=== PATIENT | female | born 1950 | race Caucasian/White ===

== ENCOUNTER 2017-04-27 17:10 | Observation (INO) | payer OTHER ==
[~2017-04-27] VITALS: Ht 167.6 cm; Wt 123.3 kg
[2017-04-27] MEDS ORDERED: SODIUM CHLORIDE 0.9% 1000ML 1,000 ML IV STA (17:31)
--- NOTE | 2017-04-27 17:35 | EMERGENCY ROOM VISIT NOTE ---
History Report prepared by Dustin: Angel Rider Under the Supervision of: Dr. Kristi Red D.O. First contact with patient: 17:17 Chief Complaint: FLU LIKE SX Stated Complaint: SICK ALL OVER History of Present Illness The patient is a 66 year old female who presents to the Emergency Room with complaints of a constant generalized ache sensation that began today. She states that she felt fine when she woke up this morning, but started to feel generalized achiness, which she describes as "sickness all over", throughout the day today. The patient admits that she has been hallucinating and "seeing things that she usually does not". She states she hears and sees things that are not true such as her "granddaughter needs medicine that she does not want to take for her chest because she had an x-ray done, even though this is not true". She also reports that she has been experiencing nausea, chills, and a headache. The patient reports that she has been also experiencing abdominal pain , which she states is worse than her other general ache pains. She states that she has experienced this every month for a while, but she admits that she has never experienced her symptoms this severe in the past. The patient states that she has experienced these symptoms three times this week. She states that she took Tylenol today, but denies any relief of symptoms. The patient is accompanied by her daughter who states that the patient has been more fatigued and sleeping more lately. The patient admits that she has a history of chronic diarrhea and a family history of brain tumors. She denies any changes in bowel movement, vomiting, urinary symptoms, dizziness, sore throat, cough, SOB, chest pains, rhinorrhea, rashes, changing of medication dosage, being around someone sick, recent travel, thyroid problems. Source of History: patient, family (daughter) Onset: today Position: other (global) Quality: ache Timing: constant Modifying Factors (Relieving): tylenol Associated Symptoms: + chills, + headache, + nausea, + abdominal pain, + diarrhea, + fatigue, No sorethroat, No cough, No chest pain, No SOB, No vomiting , No urinary symptoms, No rash Review of Systems See HPI for pertinent positives & negatives. A total of 10 systems reviewed and were otherwise negative. Past Medical & Surgical Medical Problems: (1) Diarrhea Family History FHx: brain tumor Social History Smoking Status: Never Smoker Occupation Status: retired Current/Historical Medications Scheduled Acetaminophen (Tylenol), 1,000 MG PO HS Hydrochlorothiazide (Hctz), 25 MG PO DAILY Paroxetine HCl (Paroxetine), 20 MG PO DAILY Allergies Coded Allergies: No Known Allergies (Unverified , 04/27/17) Physical Exam Vital Signs Date Time Temp Pulse Resp B/P (MAP) Pulse Ox O2 Delivery O2 Flow Rate FiO2 04/27/17 20:33 81 18 146/74 97 Room Air 04/27/17 18:55 82 20 166/70 96 Room Air 04/27/17 17:13 36.7 79 18 157/82 92 Room Air Physical Exam GENERAL: alert, well appearing, well nourished, no distress, non-toxic EYE EXAM: normal conjunctiva, PERRL and EOM's grossly intact OROPHARYNX: no exudate, no erythema, lips, buccal mucosa, and tongue normal and mucous membranes are moist NECK: supple, no nuchal rigidity, no adenopathy, non-tender LUNGS: Clear to auscultation. Normal chest wall mechanics HEART: no murmurs, S1 normal and S2 normal ABDOMEN: abdomen soft, non-tender, normo-active bowel sounds, no masses, no rebound or guarding. BACK: Back is symmetrical on inspection and there is no deformity, no midline tenderness, no CVA tenderness. SKIN: no rashes and no bruising UPPER EXTREMITIES: upper extremities are grossly normal. LOWER EXTREMITIES: No pitting edema. NEURO EXAM: Seems slightly confused. Normal sensorium, cranial nerves II-XII grossly intact, normal speech, no gross weakness of arms, no gross weakness of legs. No drift. Gross sensation intact. Medical Decision & Procedures ER Provider Diagnostic Interpretation: Radiology results have been interpreted by the radiologist and reviewed by me. HEAD CT NONCONTRAST CT DOSE: 638.56 mGycm HISTORY: confusion, hallucinations TECHNIQUE: Multiaxial CT images of the head were performed without the use of intravenous contrast. Automated exposure control was utilized for this study. A dose lowering technique was utilized adhering to the principles of ALARA. Comparison: None. Findings: The paranasal sinuses and mastoid air cells are clear. The calvarium and skull base are intact. The ventricles and sulci are within normal limits. There is no mass, hematoma, midline shift, or acute infarct. Impression: No acute intracranial abnormality. Electronically signed by: Bhavin Medrano M.D. 04/27/2017 6:23 PM Dictated Date/Time: 04/27/2017 6:19 PM CHEST ONE VIEW PORTABLE CLINICAL HISTORY: Flu-like symptoms COMPARISON STUDY: No previous studies for comparison. FINDINGS: Lung volumes are at the lower limits of normal. There is no consolidation to suggest pneumonia. There is no evidence of pulmonary edema. Mild cardiomegaly is noted. No pneumothorax or pleural effusion is present. IMPRESSION: No acute cardiopulmonary findings. Electronically signed by: Shelton Amin M.D. 04/27/2017 6:08 PM Dictated Date/Time: 04/27/2017 6:07 PM A[address]OMEN AND PELVIS CT WITH IV CONTRAST CT DOSE: 1737.84 mGy.cm HISTORY: Generalized abdominal pain, nausea TECHNIQUE: Multiaxial CT images of the abdomen and pelvis were performed following the use of intravenous contrast. A dose lowering technique was utilized adhering to the principles of ALARA. COMPARISON STUDY: None. FINDINGS: A 3 mm subpleural nodule within the right lower lobe on image 85. A 6 mm hypodense lesion within the left hepatic lobe. This is too small to characterize but favors a cyst. Cholecystectomy. The pancreas, spleen, adrenal glands are unremarkable. A few subcentimeter hypodense lesions within the kidneys are too small to characterize but favor cysts. Small left peripelvic renal cysts. No retroperitoneal lymphadenopathy. 3.2 cm right fundal partially calcified uterine fibroid. The bladder is unremarkable. No bowel wall thickening or obstruction. Normal appendix. Hypodense focus at the cervix favors a nabothian cyst. IMPRESSION: 1. No bowel wall thickening or obstruction. 2. Normal appendix. 3. No hydronephrosis. 4. Cholecystectomy. 5. A 3 mm indeterminate pulmonary nodule within the right lower lobe. Electronically signed by: Bhavin Medrano M.D. 04/27/2017 7:49 PM Dictated Date/Time: 04/27/2017 7:28 PM Laboratory Results 04/27/17 17:58 Red Blood Count 5.00, Mean Corpuscular Volume 86.6, Mean Corpuscular Hemoglobin 29.6, Mean Corpuscular Hemoglobin Concent 34.2, Mean Platelet Volume 11.4, Neutrophils (%) (Auto) 86.9, Lymphocytes (%) (Auto) 9.7, Monocytes (%) (Auto) 2.6, Eosinophils (%) (Auto) 0.2, Basophils (%) (Auto) 0.2, Neutrophils # (Auto) 8.09, Lymphocytes # (Auto) 0.90, Monocytes # (Auto) 0.24, Eosinophils # (Auto) 0.02, Basophils # (Auto) 0.02 04/27/17 17:58 Test 04/27/17 17:44 04/27/17 17:58 Urine Color YELLOW Urine Appearance CLEAR (CLEAR) Urine pH 5.5 (4.5-7.5) Urine Specific [place] 1.024 (1.000-1.030) Urine Protein NEG (NEG) Urine Glucose (UA) NEG (NEG) Urine Ketones TRACE (NEG) Urine Occult Blood 3+ (NEG) Urine Nitrite NEG (NEG) Urine Bilirubin NEG (NEG) Urine Urobilinogen NEG (NEG) Urine Leukocyte Esterase NEG (NEG) Urine WBC (Auto) 1-5 /hpf (0-5) Urine RBC (Auto) 10-30 /hpf (0-4) Urine Hyaline Casts (Auto) 0 /lpf (0-5) Urine Epithelial Cells (Auto) 10-20 /lpf (0-5) Urine Bacteria (Auto) NEG (NEG) Influenza Type A Antigen Neg for Influ A (NEG) Influenza Type B Antigen Neg for Influ B (NEG) White Blood Count 9.31 K/uL (4.8-10.8) Red Blood Count 5.00 M/uL (4.2-5.4) Hemoglobin 14.8 g/dL (12.0-16.0) Hematocrit 43.3 % (37-47) Mean Corpuscular Volume 86.6 fL (80-100) Mean Corpuscular Hemoglobin 29.6 pg (25-34) Mean Corpuscular Hemoglobin Concent 34.2 g/dl (32-36) Platelet Count 174 K/uL (130-400) Mean Platelet Volume 11.4 fL (7.4-10.4) Neutrophils (%) (Auto) 86.9 % Lymphocytes (%) (Auto) 9.7 % Monocytes (%) (Auto) 2.6 % Eosinophils (%) (Auto) 0.2 % Basophils (%) (Auto) 0.2 % Neutrophils # (Auto) 8.09 K/uL (1.4-6.5) Lymphocytes # (Auto) 0.90 K/uL (1.2-3.4) Monocytes # (Auto) 0.24 K/uL (0.11-0.59) Eosinophils # (Auto) 0.02 K/uL (0-0.5) Basophils # (Auto) 0.02 K/uL (0-0.2) RDW Standard Deviation 40.9 fL (36.4-46.3) RDW Coefficient of Variation 12.8 % (11.5-14.5) Immature Granulocyte % (Auto) 0.4 % Immature Granulocyte # (Auto) 0.04 K/uL (0.00-0.02) Anion Gap 6.0 mmol/L (3-11) Est Creatinine Clear Calc Drug Dose 137.3 ml/min Estimated GFR () 114.0 Estimated GFR (Non- 98.3 BUN/Creatinine Ratio 29.8 (10-20) Lactic Acid Level 1.1 mmol/L (0.4-2.0) Calcium Level 8.9 mg/dl (8.5-10.1) Total Bilirubin 0.9 mg/dl (0.2-1) Aspartate Amino Transf (AST/SGOT) 11 U/L (15-37) Alanine Aminotransferase (ALT/SGPT) 20 U/L (12-78) Alkaline Phosphatase 68 U/L (45-117) Ammonia 23.0 umol/L (11-32) Troponin I < 0.015 ng/ml (0-0.045) Total Protein 7.1 gm/dl (6.4-8.2) Albumin 3.6 gm/dl (3.4-5.0) Globulin 3.5 gm/dl (2.5-4.0) Albumin/Globulin Ratio 1.0 (0.9-2) Lipase 95 U/L (73-393) Thyroid Stimulating Hormone (TSH) 1.460 uIu/ml (0.300-4.500) Acetaminophen Level < 2 ug/ml (10-30) Ethyl Alcohol mg/dL < 3.0 mg/dl (0-3) Lyme Disease IgG Antibody NEG (NEG) Lyme Disease IgM Antibody NEG (NEG) Monoscreen NEG (NEG) Laboratory results per my review. Medications Administered Medications (Trade) Dose Ordered Sig/Nasrin Route Start Time Stop Time Status Last Admin Dose Admin Sodium Chloride 1,000 ml @ 200 mls/hr Q5H STAT IV 04/27/17 17:31 04/27/17 22:30 DC 04/27/17 18:03 200 MLS/HR Ondansetron HCl (Zofran 8mg Iv) 8 mg NOW STAT IV 04/27/17 18:58 04/27/17 18:59 DC 04/27/17 19:10 8 MG Acetaminophen 100 ml @ 400 mls/hr NOW STAT IV 04/27/17 20:42 04/27/17 20:56 DC 04/27/17 20:55 400 MLS/HR Pantoprazole Sodium 40 mg/ Syringe 10 ml @ 5 mls/min NOW ONCE IV 04/27/17 20:45 04/27/17 20:46 DC 04/27/17 21:10 5 MLS/MIN ECG Indication: other (lightheaded) Rate (beats per minute): 80 Rhythm: normal sinus Findings: no acute ischemic change, no ectopy, other (Normal axis and intervals ) ED Course 1716: The patient was evaluated in room B02. A complete history and physical exam was performed. 1730: Ordered Sodium Chloride 1000 ml @ 200 mls/hr IV. 1857: Ordered Ondansetron HCl 8 mg IV. 2035: I reevaluated the patient and she is complaining of a headache and abdominal pain. I will order medication for her. 2041: Ordered Acetaminophen 100 ml @ 400 mls/hr IV. 2044: Ordered Pantoprazole Sodium 40 mg/ Syringe 10 ml @ 5 mls/min. 2114: I discussed the patients case with Dr. Berman, [facility] Hospitalist. He understands the patients condition and agrees to accept the patient. The patient will be further evaluated. Medical Decision The differential diagnosis includes but is not limited to etiologies such as metabolic, infection, hypo/hyperglycemia, electrolyte abnormalities, cardiac sources, intracerebral event, toxicologic, neurologic, as well as others were entertained. Pt with unclear etiology of symptoms, possibly viral, however concern due to change in mental status and intermittent possible hallucinations. Doubt bacteremia/sepsis. No worsening george, fevers, neck pain, did not feel pt warranted LP, low suspicion for meningitis/encephalitis. Unclear etiology of hematuria, no symptoms, no sx to suggest stone and none seen on CT. Unclear etiology of abd pain. Pt admitted for additional evaluation/treatment. Medication Reconcilliation Current Medication List: was personally reviewed by me Blood Pressure Screening Patient's blood pressure: Elevated blood pressure Blood pressure disposition: Elevated BP felt to be situational Consults Time Called: 2111 Consulting Physician: Mitchell Juaers Hospitalist Returned Call: 2114 I discussed the patients case with Mitchell Juares Hospitalist. He understands the patients condition and agrees to accept the patient. The patient will be further evaluated. Impression Primary Impression: Abdominal pain Additional Impressions: Head ache Myalgia Generalized weakness Hematuria Scribe Attestation The scribe's documentation has been prepared under my direction and personally reviewed by me in its entirety. I confirm that the note above accurately reflects all work, treatment, procedures, and medical decision making performed by me. Departure Information Dispostion Being Evaluated By Hospitalist (Dr. Berman) Referrals No Doctor, Assigned (PCP) Patient Instructions My [facility] Problem Qualifiers Primary Impression: Abdominal pain Abdominal location: generalized Qualified Codes: R10.84 - Generalized abdominal pain Additional Impressions: Head ache Headache type: unspecified Headache chronicity pattern: unspecified pattern Intractability: not intractable Qualified Codes: R51 - Headache Hematuria Hematuria type: unspecified type Qualified Codes: R31.9 - Hematuria, unspecified
[2017-04-27 17:59] LABS: URINE APPEARANCE CLEAR (CLEAR); URINE BILIRUBIN NEG (NEG); URINE COLOR YELLOW; URINE NITRITE NEG (NEG); URINE PH 5.5 (4.5-7.5); URINE SPECIFIC GRAVITY 1.024 (1.000-1.030); UROBILINOGEN NEG (NEG); ZZUR CULT IF INDIC CLEAN CATCH NO
[2017-04-27 18:07] LABS: MANUAL MICROSCOPIC REQUIRED? NO; REVIEW REQ? NO
--- NOTE | 2017-04-27 18:09 | DIAGNOSTIC IMAGING REPORT ---
CHEST ONE VIEW PORTABLE CLINICAL HISTORY: Flu-like symptoms COMPARISON STUDY: No previous studies for comparison. FINDINGS: Lung volumes are at the lower limits of normal. There is no consolidation to suggest pneumonia. There is no evidence of pulmonary edema. Mild cardiomegaly is noted. No pneumothorax or pleural effusion is present. IMPRESSION: No acute cardiopulmonary findings. Electronically signed by: Shelton Amin M.D. 04/27/2017 6:08 PM Dictated Date/Time: 04/27/2017 6:07 PM
[2017-04-27 18:12] LABS: BASO % 0.2 %; BASO ABS # 0.02 K/uL (0-0.2); COMPLETE YES; EOS % 0.2 %; HEMATOCRIT 43.3 % (37-47); IG% 0.4 %; LYMPH % 9.7 %; MEAN CELL VOLUME 86.6 fL (80-100); MEAN CORPUSCULAR HEMOGLOBIN 29.6 pg (25-34); MEAN CORPUSCULAR HGB CONC 34.2 g/dl (32-36); MEAN PLATELET VOLUME 11.4 fL (7.4-10.4); MONO % 2.6 %; NEUT % 86.9 %; PLATELET COUNT 174 K/uL (130-400); WHITE BLOOD COUNT 9.31 K/uL (4.8-10.8)
--- NOTE | 2017-04-27 18:24 | DIAGNOSTIC IMAGING REPORT ---
HEAD CT NONCONTRAST CT DOSE: 638.56 mGycm HISTORY: confusion, hallucinations TECHNIQUE: Multiaxial CT images of the head were performed without the use of intravenous contrast. Automated exposure control was utilized for this study. A dose lowering technique was utilized adhering to the principles of ALARA. Comparison: None. Findings: The paranasal sinuses and mastoid air cells are clear. The calvarium and skull base are intact. The ventricles and sulci are within normal limits. There is no mass, hematoma, midline shift, or acute infarct. Impression: No acute intracranial abnormality. Electronically signed by: Bhavin Medrano M.D. 04/27/2017 6:23 PM Dictated Date/Time: 04/27/2017 6:19 PM
[2017-04-27 18:37] LABS: ALT/SGPT 20 U/L (12-78); AST/SGOT 11 U/L (15-37); BLOOD UREA NITROGEN 16 mg/dl (7-18); BUN/CREATININE RATIO 29.8 (10-20); CALCIUM 8.9 mg/dl (8.5-10.1); CARBON DIOXIDE 29 mmol/L (21-32); CHLORIDE 103 mmol/L (98-107); CREATININE 0.54 mg/dl (0.60-1.20); GLUCOSE 122 mg/dl (70-99); POTASSIUM 3.5 mmol/L (3.5-5.1); SODIUM 138 mmol/L (136-145)
[2017-04-27] MEDS ORDERED: HYDR25TA4 PO (18:46)
[2017-04-27] MEDS ORDERED: TYLOTC500 PO (18:46)
[2017-04-27] MEDS ORDERED: PARO20TA3 PO (18:46)
[2017-04-27 18:48] LABS: ALKALINE PHOSPHATASE 68 U/L (45-117)
[2017-04-27] MEDS ORDERED: ONDANSETRON 8 MG/54 ML D5W IV STA (18:58)
[2017-04-27 19:01] LABS: LYME DISEASE AB IGG NEG (NEG); LYME DISEASE AB IGM NEG (NEG)
[2017-04-27] MEDS ORDERED: OPTIRAY 320 IV PRN (19:15)
--- NOTE | 2017-04-27 19:51 | DIAGNOSTIC IMAGING REPORT ---
ABDOMEN AND PELVIS CT WITH IV CONTRAST CT DOSE: 1737.84 mGy.cm HISTORY: Generalized abdominal pain, nausea TECHNIQUE: Multiaxial CT images of the abdomen and pelvis were performed following the use of intravenous contrast. A dose lowering technique was utilized adhering to the principles of ALARA. COMPARISON STUDY: None. FINDINGS: A 3 mm subpleural nodule within the right lower lobe on image 85. A 6 mm hypodense lesion within the left hepatic lobe. This is too small to characterize but favors a cyst. Cholecystectomy. The pancreas, spleen, adrenal glands are unremarkable. A few subcentimeter hypodense lesions within the kidneys are too small to characterize but favor cysts. Small left peripelvic renal cysts. No retroperitoneal lymphadenopathy. 3.2 cm right fundal partially calcified uterine fibroid. The bladder is unremarkable. No bowel wall thickening or obstruction. Normal appendix. Hypodense focus at the cervix favors a nabothian cyst. IMPRESSION: 1. No bowel wall thickening or obstruction. 2. Normal appendix. 3. No hydronephrosis. 4. Cholecystectomy. 5. A 3 mm indeterminate pulmonary nodule within the right lower lobe. Electronically signed by: Bhavin Medrano M.D. 04/27/2017 7:49 PM Dictated Date/Time: 04/27/2017 7:28 PM
[2017-04-27] MEDS ORDERED: ACETAMINOPHEN IV 100 ML IV STA (20:42)
[2017-04-27] MEDS ORDERED: PANTOprazole INJ 40 MG in SYRINGE 0 ML IV ONE (20:45)
[2017-04-27 21:43] VITALS: O2SAT 98
[2017-04-27 22:07] VITALS: BP 126/73; PULSE 74; TEMP 36.7; O2SAT 97
[2017-04-27 22:23] VITALS: BP 126/73; PULSE 74; TEMP 36.7; Ht 167.6 cm; Wt 123.3 kg
[2017-04-27] MEDS ORDERED: ONDANSETRON INJ 2 MG/ML 2 ML VIAL IV PRN (23:00)
[2017-04-27] MEDS ORDERED: IV FLUIDS COMPLETED PRN (23:45)
[2017-04-27] MEDS: NSS + 20MEQ KCL 1000ML 1,000 ML IV SCH (23:58)
[2017-04-27] MEDS: ACETAMINOPHEN 325 MG TAB PO PRN (23:58)
[2017-04-28 05:42] LABS: BASO % 0.6 %; BASO ABS # 0.04 K/uL (0-0.2); COMPLETE YES; EOS % 0.3 %; IG% 0.3 %; LYMPH % 25.9 %; LYMPH ABS # 1.67 K/uL (1.2-3.4); MEAN CELL VOLUME 87.1 fL (80-100); MEAN CORPUSCULAR HEMOGLOBIN 29.2 pg (25-34); MEAN CORPUSCULAR HGB CONC 33.6 g/dl (32-36); MEAN PLATELET VOLUME 10.8 fL (7.4-10.4); MONO % 8.1 %; NEUT % 64.8 %; PLATELET COUNT 190 K/uL (130-400); RED BLOOD COUNT 4.48 M/uL (4.2-5.4); WHITE BLOOD COUNT 6.45 K/uL (4.8-10.8)
[2017-04-28 06:10] LABS: BUN/CREATININE RATIO 25.7 (10-20); CALCIUM 8.3 mg/dl (8.5-10.1); CREATININE 0.52 mg/dl (0.60-1.20); POTASSIUM 3.3 mmol/L (3.5-5.1)
[2017-04-28 07:20] VITALS: BP 107/61; PULSE 75; TEMP 37.1; O2SAT 98
[2017-04-28] MEDS ORDERED: PNEUMOCOCCAL POLYSACCHARIDES 25 MCG/0.5 ML VIAL/SYR IM. ONE (08:00)
[2017-04-28] MEDS ORDERED: PAROXETINE 20 MG TAB PO SCH (08:00)
[2017-04-28] MEDS ORDERED: PNEUMOCOCCAL ADMINISTRATION CHARGE ONE (08:00)
--- NOTE | 2017-04-28 08:16 | History and Physical ---
History & Physical Date & Time of Service: Apr 28, 2017 at 08:04 Chief Complaint: Generalized Weakness Primary Care Physician: Trang Vega D.O. History of Present Illness Source: patient, clinic records 66 year old female with history of hypertension and anxiety presenting with headaches, generalized weakness and abdominal pain. Patient was apparently at her baseline state of health until a few days ago. She reports intermittent abdominal pain, vague discomfort, not related to food intake. Denies nausea, changes with BM/melena/hematochezia. Patient also reports daily headaches for the past few days, frontal, throbbing associated with feeling of "strange sensation" all over her body, followed by generalized weakness. Denies photophobia, visual changes, focal neuro deficits. Per ER notes, patient's daughter reports that she has been having episodes of hallucinations as well (please refer to ER notes). Denies fever/chills, chest pain, dyspnea. No other symptoms. CT head negative no leukocytosis flu, lyme screen negative Family History FHx: brain tumor Social History Smoking Status: Never Smoker Smokeless Tobacco Use: No Alcohol Use: none Drug Use: none Marital Status: Housing status: lives with family Occupational Status: retired Multi-Drug Resistant Organisms History of MDRO: No Allergies Coded Allergies: No Known Allergies (Unverified , 04/27/17) Home Medications Scheduled Acetaminophen (Tylenol), 1,000 MG PO HS Hydrochlorothiazide (Hctz), 25 MG PO DAILY Paroxetine HCl (Paroxetine), 20 MG PO DAILY Review of Systems Constitutional- no fever; no weight loss Eyes- no acute visual changes ENT- no sinus drainage; no pharyngitis Pulmonary- no cough, no wheezing, no shortness of breath Cardiac- no chest pain, no palpitations, no orthopnea, no dependent edema GI- (+) as noted above - no dysuria, no hematuria Musculoskeletal- no arthralgias, no myalgias Derm- no rashes, no new skin lesions, no changing skin lesions Hematologic- no unusual bruising, no unusual bleeding Lymphatics- no adenopathy Endocrine- no polyuria or polydipsia; no heat or cold intolerance Neuro-(+) as noted above Psych- no anxiety, no depression Physical Exam Vital Signs Date Time Temp Pulse Resp B/P (MAP) Pulse Ox O2 Delivery O2 Flow Rate FiO2 04/28/17 07:20 37.1 75 18 107/61 (76) 98 Room Air 04/28/17 00:00 Room Air 04/27/17 22:23 36.7 74 18 126/73 Room Air 04/27/17 22:07 36.7 74 18 126/73 (90) 97 Room Air 04/27/17 21:43 86 18 145/69 98 Room Air 04/27/17 20:33 81 18 146/74 97 Room Air 04/27/17 18:55 82 20 166/70 96 Room Air 04/27/17 17:13 36.7 79 18 157/82 92 Room Air General Appearance: WD/WN, no apparent distress Head: normocephalic, atraumatic Eyes: normal inspection, EOMI, sclerae normal ENT: normal ENT inspection, hearing grossly normal, pharynx normal Neck: supple, no adenopathy, thyroid normal, no JVD, trachea midline Respiratory/Chest: chest non-tender, lungs clear, normal breath sounds, no respiratory distress, no accessory muscle use Cardiovascular: regular rate, rhythm, no edema, no JVD, no murmur Abdomen/GI: normal bowel sounds, non tender, soft, no organomegaly Back: normal inspection, no CVA tenderness Extremities/Musculoskelatal: normal inspection, no calf tenderness, no pedal edema, non-tender Neurologic/Psych: computing architect II-XII nml as tested, no motor/sensory deficits, alert, normal mood/affect, oriented x 3 Skin: normal color, warm/dry, no rash Lymphatic: no adenopathy Diagnostics Laboratory Results Results Past 24 Hours Test 04/27/17 17:44 04/27/17 17:58 04/28/17 05:30 Range/Units Urine Color YELLOW Urine Appearance CLEAR CLEAR Urine pH 5.5 4.5-7.5 Urine Specific [place] 1.024 1.000-1.030 Urine Protein NEG NEG Urine Glucose (UA) NEG NEG Urine Ketones TRACE NEG Urine Occult Blood 3+ NEG Urine Nitrite NEG NEG Urine Bilirubin NEG NEG Urine Urobilinogen NEG NEG Urine Leukocyte Esterase NEG NEG Urine WBC (Auto) 1-5 0-5 /hpf Urine RBC (Auto) 10-30 0-4 /hpf Urine Hyaline Casts (Auto) 0 0-5 /lpf Urine Epithelial Cells (Auto) 10-20 0-5 /lpf Urine Bacteria (Auto) NEG NEG Influenza Type A Antigen Neg for Influ A NEG Influenza Type B Antigen Neg for Influ B NEG White Blood Count 9.31 6.45 4.8-10.8 K/uL Red Blood Count 5.00 4.48 4.2-5.4 M/uL Hemoglobin 14.8 13.1 12.0-16.0 g/dL Hematocrit 43.3 39.0 37-47 % Mean Corpuscular Volume 86.6 87.1 80-100 fL Mean Corpuscular Hemoglobin 29.6 29.2 25-34 pg Mean Corpuscular Hemoglobin Concent 34.2 33.6 32-36 g/dl Platelet Count 174 190 130-400 K/uL Mean Platelet Volume 11.4 10.8 7.4-10.4 fL Neutrophils (%) (Auto) 86.9 64.8 % Lymphocytes (%) (Auto) 9.7 25.9 % Monocytes (%) (Auto) 2.6 8.1 % Eosinophils (%) (Auto) 0.2 0.3 % Basophils (%) (Auto) 0.2 0.6 % Neutrophils # (Auto) 8.09 4.18 1.4-6.5 K/uL Lymphocytes # (Auto) 0.90 1.67 1.2-3.4 K/uL Monocytes # (Auto) 0.24 0.52 0.11-0.59 K/uL Eosinophils # (Auto) 0.02 0.02 0-0.5 K/uL Basophils # (Auto) 0.02 0.04 0-0.2 K/uL RDW Standard Deviation 40.9 40.6 36.4-46.3 fL RDW Coefficient of Variation 12.8 12.6 11.5-14.5 % Immature Granulocyte % (Auto) 0.4 0.3 % Immature Granulocyte # (Auto) 0.04 0.02 0.00-0.02 K/uL Sodium Level 138 140 136-145 mmol/L Potassium Level 3.5 3.3 3.5-5.1 mmol/L Chloride Level 103 105 98-107 mmol/L Carbon Dioxide Level 29 29 21-32 mmol/L Anion Gap 6.0 6.0 3-11 mmol/L Blood Urea Nitrogen 16 13 7-18 mg/dl Creatinine 0.54 0.52 0.60-1.20 mg/dl Est Creatinine Clear Calc Drug Dose 137.3 142.6 ml/min Estimated GFR () 114.0 115.4 Estimated GFR (Non- 98.3 99.6 BUN/Creatinine Ratio 29.8 25.7 10-20 Random Glucose 122 102 70-99 mg/dl Lactic Acid Level 1.1 0.4-2.0 mmol/L Calcium Level 8.9 8.3 8.5-10.1 mg/dl Total Bilirubin 0.9 0.2-1 mg/dl Aspartate Amino Transf (AST/SGOT) 11 15-37 U/L Alanine Aminotransferase (ALT/SGPT) 20 12-78 U/L Alkaline Phosphatase 68 45-117 U/L Ammonia 23.0 11-32 umol/L Troponin I < 0.015 0-0.045 ng/ml Total Protein 7.1 6.4-8.2 gm/dl Albumin 3.6 3.4-5.0 gm/dl Globulin 3.5 2.5-4.0 gm/dl Albumin/Globulin Ratio 1.0 0.9-2 Lipase 95 73-393 U/L Thyroid Stimulating Hormone (TSH) 1.460 0.300-4.500 uIu/ml Acetaminophen Level < 2 10-30 ug/ml Ethyl Alcohol mg/dL < 3.0 0-3 mg/dl Lyme Disease IgG Antibody NEG NEG Lyme Disease IgM Antibody NEG NEG Monoscreen NEG NEG Microbiology Results 04/27/17 Blood Culture, Received Pending 04/27/17 Blood Culture, Received Pending 04/28/17 Urine Culture, Received Pending Diagnostic Radiology ABDOMEN AND PELVIS CT WITH IV CONTRAST CT DOSE: 1737.84 mGy.cm HISTORY: Generalized abdominal pain, nausea TECHNIQUE: Multiaxial CT images of the abdomen and pelvis were performed following the use of intravenous contrast. A dose lowering technique was utilized adhering to the principles of ALARA. COMPARISON STUDY: None. FINDINGS: A 3 mm subpleural nodule within the right lower lobe on image 85. A 6 mm hypodense lesion within the left hepatic lobe. This is too small to characterize but favors a cyst. Cholecystectomy. The pancreas, spleen, adrenal glands are unremarkable. A few subcentimeter hypodense lesions within the kidneys are too small to characterize but favor cysts. Small left peripelvic renal cysts. No retroperitoneal lymphadenopathy. 3.2 cm right fundal partially calcified uterine fibroid. The bladder is unremarkable. No bowel wall thickening or obstruction. Normal appendix. Hypodense focus at the cervix favors a nabothian cyst. IMPRESSION: 1. No bowel wall thickening or obstruction. 2. Normal appendix. 3. No hydronephrosis. 4. Cholecystectomy. 5. A 3 mm indeterminate pulmonary nodule within the right lower lobe. HEAD CT NONCONTRAST CT DOSE: 638.56 mGycm HISTORY: confusion, hallucinations TECHNIQUE: Multiaxial CT images of the head were performed without the use of intravenous contrast. Automated exposure control was utilized for this study. A dose lowering technique was utilized adhering to the principles of ALARA. Comparison: None. Findings: The paranasal sinuses and mastoid air cells are clear. The calvarium and skull base are intact. The ventricles and sulci are within normal limits. There is no mass, hematoma, midline shift, or acute infarct. Impression: No acute intracranial abnormality. EKG HR 80 sinus rhythm Impression Assessment and Plan 66 year old female with history of hypertension and anxiety presenting with headaches, generalized weakness and abdominal pain. HEADACHES, WEAKNESS - associated with hallucinations - CT head negative - afebrile, no leukocytosis - possible migraine with aura? - will consult Neurology EPIGASTRIC PAIN - CT abdomen unrevealing - trial of Protonix HTN - usually on HCTZ PULMONARY NODULE - monitor as outpatient SCDs for DVT prophylaxis FULL CODE per patient DISPOSITION lives with daughter at home PT/OT evals ordered Advanced Directives Existing Living Will: No Existing Power of Design Editor: No VTE Prophylaxis VTE Risk Assessment Done? Y/N: Yes Risk Level: Low Given or contraindicated: SCD's
[2017-04-28] MEDS ORDERED: POTASSIUM CHLORIDE 10 MEQ TABCR PO ONE (10:45)
[2017-04-28] MEDS ORDERED: PANTOprazole INJ 40 MG in SYRINGE 0 ML IV SCH (11:00)
[2017-04-28] MEDS: NSS + 20MEQ KCL 1000ML 1,000 ML IV SCH ×2 (11:57→23:36)
[2017-04-28] MEDS ORDERED: LORAZEPAM 0.5 MG TAB PO PRN (12:15)
--- NOTE | 2017-04-28 12:33 | Psychiatric Consultation ---
Consultation Date of Consultation Apr 28, 2017. Identifying Data 66-year-old woman who presented to the emergency room with vague but persistent complaints of feeling ill with aches flushing, occurring acutely on the day of admission. We are consulted to evaluate anxiety, and hallucinations. Information is gathered from the patient and considered to be reliable. Chief Complaint "I get these feelings all over". History of Present Illness Elyssa de leon is a 66-year-old woman from [facility], with a history of hypertension, who says that over the course of at least several months she has been having "spells" in which she experiences head to toe redness in her face, warmth, and aching feelings. She denies that these are accompanied by fever. Her last event occurred on after she had been to [facility] to visit her she placed there in November. She had been his primary caregiver but his Alzheimer's got too severe for her to manage at home any longer. While at that visit yesterday, it was clear to her that he no longer recognized her which was sad for her as she has been to him for 42 years. Although at the beginning of our interview, she denied that she had many problems with mood or anxiety, by the end of our conversation she is able to make the connection between her sadness and shock at her not recognizing her and the immediate advantage of her symptoms. To further solidify that, as we are talking about it, she experiences yet another spell of flushing and warm achy feeling. She is tearful during our discussion, as she talks about the man she has been to and what a "great ximena" he has been. She has other stressors as well, including a daughter with bipolar disorder who is now currently living with her. She has been Paxil for many years because of depression but never higher than 20 mg daily. She says her appetite is been good and her sleep has been good if she takes an [id number] sleeping aid. We talk about the reports of hallucinations documented in the ER notes yesterday and she is quite dismissive of this. She said that that event occurred when she was coming up out of sleep and during a time when she felt unwell. She recognizes that whatever she said was not real, she denies having visual or auditory hallucinations at any other time. Past Psychiatric History Current OP Treatment: no current treatment Prior OP Treatment: no prior treatment Prior Psych Hospitalizations: none Suicide Attempts: No Past Medical/Surgical History (1) Hypertension Allergies Allergies: Coded Allergies: No Known Allergies (Unverified , 04/27/17) Home Medications Scheduled Acetaminophen (Tylenol), 1,000 MG PO HS Hydrochlorothiazide (Hctz), 25 MG PO DAILY Paroxetine HCl (Paroxetine), 20 MG PO DAILY Family History FHx: brain tumor History of Suicide: No History of Substance Abuse: No Psychiatric History: No Alcohol Use Alcohol Use In Past 12 Months: No Smoking Use Smoking Status: Never Smoker Substance History Denies Personal History Lives in: 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 Relationship History: (has been currently in [facility] with Alzheimer's) Children: 2 Legal History: none Psychological Trauma History: Denies Hx Traumatic Event Review of Systems Constitutional: denies no symptoms reported, denies see HPI, denies chills, denies diaphoresis, denies fever, denies malaise, denies weakness, denies other Eyes: denies: no symptoms, as stated in HPI, eye pain, tearing, itching, redness, discharge, double vision, visual changes, blurred vision, photophobia, other ENT: denies: no symptoms reported, see HPI, ear pain, ear discharge, loss of hearing, tinnitus, nasal pain, nasal congestion, rhinorrhea, epistaxis, sore throat, stidor, throat swelling, mouth pain, mouth swelling, dental pain, gum swelling, other Cardiovascular: denies: no symptoms reported, see HPI, chest pain, chest tightness, chest pressure, diaphoresis, palpitations, syncope, other Respiratory: denies: no symptoms reported, see HPI, cough, orthopnea, short of breath, stridor, wheezing, sputum production, cyanosis, ARANGO, PND, other Gastrointestinal: denies no symptoms reported, denies see HPI, denies abdominal pain, denies constipation, denies diarrhea, denies nausea, denies vomiting, denies other Genitourinary - Female: denies: no symptoms, see HPI, rash, amenorrhea, dysmenorrhea, menorrhagia, metrorrhagia, , vaginal bleeding, vaginal itching, vaginal discharge, vulvadynia, other Musculoskeletal: other (aching) Integumentary: denies no symptoms reported, denies see HPI, denies change in color, denies change in hair/nails, denies dryness, denies lesions, denies lumps , denies rash, denies other Neurologic: denies: no symptoms, see HPI, headache, numbness, paresthesias, pre -existing deficit, seizure, tingling, tremors, general weakness, tics, focal weakness, vertigo, lethargy, memory loss, dizziness, other Hematologic / Lymphatic: other (flushing) Examination Physical Examination As per Dr. Berman Vital Signs Vital Signs Past 12 Hours Date Time Temp Pulse Resp B/P (MAP) Pulse Ox O2 Delivery O2 Flow Rate FiO2 04/28/17 07:20 37.1 75 18 107/61 (76) 98 Room Air Laboratory Results Last 24 Hours Test 04/27/17 17:44 04/27/17 17:58 04/28/17 05:30 Urine Color YELLOW Urine Appearance CLEAR Urine pH 5.5 Urine Specific [place] 1.024 Urine Protein NEG Urine Glucose (UA) NEG Urine Ketones TRACE Urine Occult Blood 3+ Urine Nitrite NEG Urine Bilirubin NEG Urine Urobilinogen NEG Urine Leukocyte Esterase NEG Urine WBC (Auto) 1-5 /hpf Urine RBC (Auto) 10-30 /hpf Urine Hyaline Casts (Auto) 0 /lpf Urine Epithelial Cells (Auto) 10-20 /lpf Urine Bacteria (Auto) NEG Influenza Type A Antigen Neg for Influ A Influenza Type B Antigen Neg for Influ B White Blood Count 9.31 K/uL 6.45 K/uL Red Blood Count 5.00 M/uL 4.48 M/uL Hemoglobin 14.8 g/dL 13.1 g/dL Hematocrit 43.3 % 39.0 % Mean Corpuscular Volume 86.6 fL 87.1 fL Mean Corpuscular Hemoglobin 29.6 pg 29.2 pg Mean Corpuscular Hemoglobin Concent 34.2 g/dl 33.6 g/dl Platelet Count 174 K/uL 190 K/uL Mean Platelet Volume 11.4 fL 10.8 fL Neutrophils (%) (Auto) 86.9 % 64.8 % Lymphocytes (%) (Auto) 9.7 % 25.9 % Monocytes (%) (Auto) 2.6 % 8.1 % Eosinophils (%) (Auto) 0.2 % 0.3 % Basophils (%) (Auto) 0.2 % 0.6 % Neutrophils # (Auto) 8.09 K/uL 4.18 K/uL Lymphocytes # (Auto) 0.90 K/uL 1.67 K/uL Monocytes # (Auto) 0.24 K/uL 0.52 K/uL Eosinophils # (Auto) 0.02 K/uL 0.02 K/uL Basophils # (Auto) 0.02 K/uL 0.04 K/uL RDW Standard Deviation 40.9 fL 40.6 fL RDW Coefficient of Variation 12.8 % 12.6 % Immature Granulocyte % (Auto) 0.4 % 0.3 % Immature Granulocyte # (Auto) 0.04 K/uL 0.02 K/uL Sodium Level 138 mmol/L 140 mmol/L Potassium Level 3.5 mmol/L 3.3 mmol/L Chloride Level 103 mmol/L 105 mmol/L Carbon Dioxide Level 29 mmol/L 29 mmol/L Anion Gap 6.0 mmol/L 6.0 mmol/L Blood Urea Nitrogen 16 mg/dl 13 mg/dl Creatinine 0.54 mg/dl 0.52 mg/dl Est Creatinine Clear Calc Drug Dose 137.3 ml/min 142.6 ml/min Estimated GFR () 114.0 115.4 Estimated GFR (Non- 98.3 99.6 BUN/Creatinine Ratio 29.8 25.7 Random Glucose 122 mg/dl 102 mg/dl Lactic Acid Level 1.1 mmol/L Calcium Level 8.9 mg/dl 8.3 mg/dl Total Bilirubin 0.9 mg/dl Aspartate Amino Transf (AST/SGOT) 11 U/L Alanine Aminotransferase (ALT/SGPT) 20 U/L Alkaline Phosphatase 68 U/L Ammonia 23.0 umol/L Troponin I < 0.015 ng/ml Total Protein 7.1 gm/dl Albumin 3.6 gm/dl Globulin 3.5 gm/dl Albumin/Globulin Ratio 1.0 Lipase 95 U/L Thyroid Stimulating Hormone (TSH) 1.460 uIu/ml Acetaminophen Level < 2 ug/ml Ethyl Alcohol mg/dL < 3.0 mg/dl Lyme Disease IgG Antibody NEG Lyme Disease IgM Antibody NEG Monoscreen NEG Mental Examination During interview pt is: alert and oriented, cooperative Appearance: appropriately dressed, appropriately groomed Eye contact is: good Motor behavior is: psychomotor agitation (anxiously moves her covers and belongings about) Speech: other (somewhat rapid, anxious in tone) Affect: tearful Mood is: anxious Thought process: goal directed Thought content: reality based without delusions Suicidal thought are: denied Homicidal thoughts are: denied Hallucinations: denies auditory, denies visual Cognition: memory grossly intact, attention grossly intact, language grossly intact Intelligence estimated to be: average Insight: fair Judgement: fair Impression / Recommendations Impression 66-year-old woman admitted with nonspecific complaints of body aches as well as a possible hallucination. At the time I see the patient for evaluation she describes her hallucinations more as twilight experiences in the ER yesterday, denying any previous episodes. She is initially minimizing any of her emotional distress but eventually is able to make the connection between her distress at her no longer recognizing her and the episode on . She is willing to extend that to say she may have had these episodes previously in dealing with her . She is willing to have her Paxil increased to 40 mg and I will take the liberty of ordering Ativan 0.5 mg every 4 hours when necessary for use here in the hospital. She declines the offer of outpatient counseling. She meets no criteria for inpatient mental health treatment. Inventory Assets Strengths: Love of family Risk Factors Assessment : Yes /single/: No Higher / Fall in social status: No Health problems: No Mental Health Diagnoses: Yes Substance use disorders: No Previous psychiatric stay: No Hopelessness: No Smoker: No Protective Factors Assessment : Yes Responsible for young children: No Employed: No Stable relationships: Yes Supportive family: Yes Recommendations (1) depressive disorder NOS with anxious traits 04/28 - Increase Paxil to 40 mg daily - Add when necessary Ativan 0.5 mg every 4 hours when necessary while here in the hospital -Patient declines the offer of outpatient therapy -Does not meet criteria for inpatient mental health treatment Has been reviewed with Dr. Farrah brandt
[2017-04-28 14:30] VITALS: BP 109/65; PULSE 72; TEMP 37.1; O2SAT 96
--- NOTE | 2017-04-28 15:07 | Pharmacy Progress Note ---
Automatic IV to PO Conversion Date of Service: Apr 28, 2017. [facility] has identified patient as an appropriate candidate for automatic intravenous to oral conversion. Eligible medication: PROTONIX 40 IV every 24 hours. Day # 1 of IV therapy. Subjective The patient is a 66 year old female admitted on Apr 27, 2017 at 21:26 for Generalized Weakness. Objective Vital Signs: Vital Signs Past 12 Hours Date Time Temp Pulse Resp B/P (MAP) Pulse Ox O2 Delivery O2 Flow Rate FiO2 04/28/17 14:30 37.1 72 20 109/65 (80) 96 Room Air 04/28/17 07:20 37.1 75 18 107/61 (76) 98 Room Air White Blood Count: Test 04/27/17 17:58 04/28/17 05:30 White Blood Count 9.31 K/uL (4.8-10.8) 6.45 K/uL (4.8-10.8) Red Blood Count 5.00 M/uL (4.2-5.4) 4.48 M/uL (4.2-5.4) Hemoglobin 14.8 g/dL (12.0-16.0) 13.1 g/dL (12.0-16.0) Hematocrit 43.3 % (37-47) 39.0 % (37-47) Mean Corpuscular Volume 86.6 fL (80-100) 87.1 fL (80-100) Mean Corpuscular Hemoglobin 29.6 pg (25-34) 29.2 pg (25-34) Mean Corpuscular Hemoglobin Concent 34.2 g/dl (32-36) 33.6 g/dl (32-36) Platelet Count 174 K/uL (130-400) 190 K/uL (130-400) Mean Platelet Volume 11.4 fL (7.4-10.4) 10.8 fL (7.4-10.4) Neutrophils (%) (Auto) 86.9 % 64.8 % Lymphocytes (%) (Auto) 9.7 % 25.9 % Monocytes (%) (Auto) 2.6 % 8.1 % Eosinophils (%) (Auto) 0.2 % 0.3 % Basophils (%) (Auto) 0.2 % 0.6 % Neutrophils # (Auto) 8.09 K/uL (1.4-6.5) 4.18 K/uL (1.4-6.5) Lymphocytes # (Auto) 0.90 K/uL (1.2-3.4) 1.67 K/uL (1.2-3.4) Monocytes # (Auto) 0.24 K/uL (0.11-0.59) 0.52 K/uL (0.11-0.59) Eosinophils # (Auto) 0.02 K/uL (0-0.5) 0.02 K/uL (0-0.5) Basophils # (Auto) 0.02 K/uL (0-0.2) 0.04 K/uL (0-0.2) Height (Feet): 5 Height (Inches): 6.00 Weight (Kilograms): 123.300 Microbiology Date/Time Source Procedure Growth Status 04/27/17 23:21 Blood Blood Culture Pending Received 04/27/17 23:16 Blood Blood Culture Pending Received 04/28/17 04:05 Urine , Clean Catch Urine Culture Pending Received Assessment & Plan [employer] recommend conversion to oral therapy once a patient is determined to be clinically stable and are able to tolerate oral medications. Patient identified as appropriate candidate for IV to PO conversion of Protonix based on the following criteria: * Receiving oral medications and/or tolerating oral diet for greater than 24 hours * Patient does not meet criteria for use of intravenous proton pump inhibitors ( negative for GI bleed, hypersecretory conditions, GERD associated with erosive esophagitis & unable to take PO) Automatic conversion to: PROTONIX 40mg PO every 24 hours
--- NOTE | 2017-04-28 16:52 | Progress Note ---
Internal Med Progress Note Date of Service: Apr 28, 2017. Provider Documentation: SUBJECTIVE: The patient was seen and examined Admitted with ongoing Headache without any significant associated symptoms And anxiety Feels a little better today OBJECTIVE: Vital Signs-as noted below Exam: General-No distress at rest Eyes-normal ENT-normal; Neck-Supple Lungs-Clear to ausucltate bilaterally Heart-Regular,no murmur Abdomen-Benign Extremities-No edema Neuro-AAOx3 No focal sensory and or motor deficit Lab data as noted below. ASSESSMENT & PLAN: 66 year old female with history of hypertension and anxiety presenting with headaches, generalized weakness and abdominal pain. HEADACHES, WEAKNESS - associated with occasional hallucinations and severe anxiety -no localizing symptoms or any signs to document -no nausea,vomiting,dizziness,neck stiffness and or photophobia - afebrile, no leukocytosis - possible migraine with aura -clinically better -await Neurology evaluation Anxiety May have depression Now having hallucinations Appreciate Psychiatry evaluation Paxil dose increased Can have Ativan PRN Hypokalemia Likely secondary to HCTZ Supplement and monitor EPIGASTRIC PAIN - CT abdomen unrevealing - trial of Protonix -denies any symptoms now HTN - usually on HCTZ PULMONARY NODULE - monitor as outpatient SCDs for DVT prophylaxis FULL CODE per patient DISPOSITION lives with daughter at home PT/OT evals ordered Vital Signs: Date Time Temp Pulse Resp B/P (MAP) Pulse Ox O2 Delivery O2 Flow Rate FiO2 04/28/17 16:00 Room Air 04/28/17 14:30 37.1 72 20 109/65 (80) 96 Room Air 04/28/17 08:00 Room Air 04/28/17 07:20 37.1 75 18 107/61 (76) 98 Room Air 04/28/17 00:00 Room Air 04/27/17 22:23 36.7 74 18 126/73 Room Air 04/27/17 22:07 36.7 74 18 126/73 (90) 97 Room Air 04/27/17 21:43 86 18 145/69 98 Room Air 04/27/17 20:33 81 18 146/74 97 Room Air 04/27/17 18:55 82 20 166/70 96 Room Air 04/27/17 17:13 36.7 79 18 157/82 92 Room Air Lab Results: Results Past 24 Hours Test 04/27/17 17:44 04/27/17 17:58 04/28/17 05:30 Range/Units Urine Color YELLOW Urine Appearance CLEAR CLEAR Urine pH 5.5 4.5-7.5 Urine Specific [place] 1.024 1.000-1.030 Urine Protein NEG NEG Urine Glucose (UA) NEG NEG Urine Ketones TRACE NEG Urine Occult Blood 3+ NEG Urine Nitrite NEG NEG Urine Bilirubin NEG NEG Urine Urobilinogen NEG NEG Urine Leukocyte Esterase NEG NEG Urine WBC (Auto) 1-5 0-5 /hpf Urine RBC (Auto) 10-30 0-4 /hpf Urine Hyaline Casts (Auto) 0 0-5 /lpf Urine Epithelial Cells (Auto) 10-20 0-5 /lpf Urine Bacteria (Auto) NEG NEG Influenza Type A Antigen Neg for Influ A NEG Influenza Type B Antigen Neg for Influ B NEG White Blood Count 9.31 6.45 4.8-10.8 K/uL Red Blood Count 5.00 4.48 4.2-5.4 M/uL Hemoglobin 14.8 13.1 12.0-16.0 g/dL Hematocrit 43.3 39.0 37-47 % Mean Corpuscular Volume 86.6 87.1 80-100 fL Mean Corpuscular Hemoglobin 29.6 29.2 25-34 pg Mean Corpuscular Hemoglobin Concent 34.2 33.6 32-36 g/dl Platelet Count 174 190 130-400 K/uL Mean Platelet Volume 11.4 10.8 7.4-10.4 fL Neutrophils (%) (Auto) 86.9 64.8 % Lymphocytes (%) (Auto) 9.7 25.9 % Monocytes (%) (Auto) 2.6 8.1 % Eosinophils (%) (Auto) 0.2 0.3 % Basophils (%) (Auto) 0.2 0.6 % Neutrophils # (Auto) 8.09 4.18 1.4-6.5 K/uL Lymphocytes # (Auto) 0.90 1.67 1.2-3.4 K/uL Monocytes # (Auto) 0.24 0.52 0.11-0.59 K/uL Eosinophils # (Auto) 0.02 0.02 0-0.5 K/uL Basophils # (Auto) 0.02 0.04 0-0.2 K/uL RDW Standard Deviation 40.9 40.6 36.4-46.3 fL RDW Coefficient of Variation 12.8 12.6 11.5-14.5 % Immature Granulocyte % (Auto) 0.4 0.3 % Immature Granulocyte # (Auto) 0.04 0.02 0.00-0.02 K/uL Sodium Level 138 140 136-145 mmol/L Potassium Level 3.5 3.3 3.5-5.1 mmol/L Chloride Level 103 105 98-107 mmol/L Carbon Dioxide Level 29 29 21-32 mmol/L Anion Gap 6.0 6.0 3-11 mmol/L Blood Urea Nitrogen 16 13 7-18 mg/dl Creatinine 0.54 0.52 0.60-1.20 mg/dl Est Creatinine Clear Calc Drug Dose 137.3 142.6 ml/min Estimated GFR () 114.0 115.4 Estimated GFR (Non- 98.3 99.6 BUN/Creatinine Ratio 29.8 25.7 10-20 Random Glucose 122 102 70-99 mg/dl Lactic Acid Level 1.1 0.4-2.0 mmol/L Calcium Level 8.9 8.3 8.5-10.1 mg/dl Total Bilirubin 0.9 0.2-1 mg/dl Aspartate Amino Transf (AST/SGOT) 11 15-37 U/L Alanine Aminotransferase (ALT/SGPT) 20 12-78 U/L Alkaline Phosphatase 68 45-117 U/L Ammonia 23.0 11-32 umol/L Troponin I < 0.015 0-0.045 ng/ml Total Protein 7.1 6.4-8.2 gm/dl Albumin 3.6 3.4-5.0 gm/dl Globulin 3.5 2.5-4.0 gm/dl Albumin/Globulin Ratio 1.0 0.9-2 Lipase 95 73-393 U/L Thyroid Stimulating Hormone (TSH) 1.460 0.300-4.500 uIu/ml Acetaminophen Level < 2 10-30 ug/ml Ethyl Alcohol mg/dL < 3.0 0-3 mg/dl Lyme Disease IgG Antibody NEG NEG Lyme Disease IgM Antibody NEG NEG Monoscreen NEG NEG Microbiology Results 04/27/17 Blood Culture, Received Pending 04/27/17 Blood Culture, Received Pending 04/28/17 Urine Culture, Received Pending
--- NOTE | 2017-04-28 19:15 | NEUROLOGY CONSULTATION ---
DATE OF CONSULTATION: 04/28/2017 REASON FOR CONSULTATION: Spells. HISTORY OF PRESENT ILLNESS: The patient is a 66-year-old female with a history of hypertension and anxiety, presented with headaches, weakness and abdominal pain. The patient was in her usual state of health until several days ago, she reported abdominal pain, not related to food intake. No nausea or vomiting. No change in bowel or bladder habits. She has intermittently had some mild headaches, but today has had a bifrontal nonthrobbing headache. The patient has had spells over the last 6 months that she described as following: A difficult to describe sensation that may include warmth from head to feet, lasting about a minute or 2, not accompanied by any palpitations, headache, chest pain, shortness of breath, fever or fullness. There is no preceding abnormal feeling prior of last minutes and resolves entirely. They were occurring about once a month and they have been occurring daily and have occurred twice this morning. They are unrelated to meals and eating. She is not diaphoretic and there were no accompanying neurologic symptoms such as diplopia, dysarthria, dysphasia, unilateral weakness or numbness. She has been otherwise well. She has not had any head or neck injury, medical or dental procedures. Her weight has been stable. She has not had any fevers, chills, sweats, jaw claudication, blood in her urine or stool, calf swelling or tenderness. In the Emergency Room upon awakening, she thought her granddaughter needed medicine that she did not want to take. The patient otherwise denies any episodes of hallucinations. She does not have any history of sleep disorder, treatment-acting behavior, and narcolepsy. She has no other psychiatric history other than anxiety. She has never had a panic attack. She has been under significant stressors, a daughter who has bipolar disease has moved in with her and she had to place her in a care home in December. Her is 89 and has Alzheimer dementia and on the day of the most recent episode did not recognize her. Her medical history is notable for hypertension and anxiety. No diabetes. No history of [place], stroke, cancer, DVT. There has been some question about whether or not she has been episodically confused. She is accompanied by her cousin and they indicate she is completely capable of activities of daily living. She does ROM bill paying, cooking, driving, there has been no change in personality. PAST SURGICAL HISTORY: Cholecystectomy, x2, right knee arthroscopy. SOCIAL HISTORY: Nonsmoker, nondrinker. She lives with her daughter as above. ALLERGIES: None. MEDICATIONS AT HOME: HCTZ, Paxil. None recently changed; no sigf-psv-udocakd medications. REVIEW OF SYSTEMS: Otherwise, per admitting HPI. FAMILY HISTORY: Her mother had tic douloureux and her father had a malignant brain tumor at 88. Her one son has Hirschsprung. IMAGING AND LABORATORY DATA: CT of the head, noncontrast - no intracranial abnormalities. Chest x-ray - no acute cardiopulmonary findings. Electrocardiogram - sinus rhythm, minimal voltage criteria for LVH, cannot rule out anterior infarct, age indeterminate. Influenza A and B negative. Lyme disease negative. White count normal, H&H normal and platelet count normal. Chemistry profile notable for a random glucose of 122, normal transaminases, normal TSH, ammonia of 23. Urinalysis notable for trace ketones, 3+ blood, 10-30 red cells, 10-20 epithelial cells. PHYSICAL EXAMINATION: VITAL SIGNS: 37/1, 72, 20, 109/65, 96%. GENERAL: The patient is awake and alert. Her spontaneous speech and language is nondysphasic and her mood is euthymic. She is oriented to place but believes it is 2007 and that Canelo is the president. Otherwise, her naming, repetitions and 3-step commands were unremarkable. There is no right/left confusion, memory was 1/3 at 3 minutes. HEENT: She is normocephalic, atraumatic. No temporal artery tenderness. No sinus tenderness. NECK: Supple. There is no jaw click. No carotid bruits. HEART: No heart murmurs. LUNGS: Clear. SPINE: Nontender, no CV angle tenderness. ABDOMEN: Soft and nontender. EXTREMITIES: There is mild pretibial edema. Feet are warm, although I had difficulty palpating the posterior tibial pulses. NEUROLOGIC: Pupils are equal, round, reactive to light. Optic nerves grossly normal. Normal frederick, motility, facial sensation and symmetry. Speech and language are normal. Tongue is midline. Motor is normal bulk and tone. No resting tremor or cogwheel rigidity. Full strength, no drift. Normal rapid alternating movements. Symmetric reflexes. Downgoing toes. Uezvta-bd-xljl and mqbb-ur-uqyp are normal. There is no dysdiadochokinesia. Her gait is unremarkable for age. Sensory examination is intact to light touch, temperature and vibration. IMPRESSION: This patient has had episodes of a difficult to describe warmth, which lasts 1-2 minutes and maybe accompanied by confusion, this could represent simple partial or partial complex seizures. I doubt transient ischemia and they would be rather brief for panic attacks. PLAN: 1. MRI brain with and without contrast. EE. The patient does appear to have some unexpected confusion. Labs for treatable etiologies of cognitive dysfunction were ordered. Will await the imaging as well in terms of further evaluation. We will follow with you. MURIEL
--- NOTE | 2017-04-28 20:41 | DIAGNOSTIC IMAGING REPORT ---
MRA HEAD WITHOUT CONTRAST HISTORY: Mental status change possible ti TECHNIQUE: 3-D dygu-rv-clllgy MRA of the brain was performed without contrast. COMPARISON STUDY: None. FINDINGS: Visualized intracranial internal carotid arteries, distal vertebral arteries, and basilar artery are widely patent. There is no significant stenosis, occlusion, or aneurysm seen within the bilateral ACAs, MCAs, or 6th grade teacher. Mild ectasia tip of the basilar without well-defined aneurysm IMPRESSION: No significant stenosis, occlusion, or aneurysm within the [place] of [place]. Mild ectasia tip of the basilar without well-defined aneurysm The above report was generated using voice recognition software. It may contain grammatical, syntax or spelling errors. Electronically signed by: Kojo Zhu M.D. 04/28/2017 8:39 PM Dictated Date/Time: 04/28/2017 8:34 PM
--- NOTE | 2017-04-28 21:23 | DIAGNOSTIC IMAGING REPORT ---
BRAIN COMBO FOR SEIZURE CLINICAL HISTORY: posse SMZ, confusion mental status change COMPARISON STUDY: No previous studies for comparison. TECHNIQUE: Utilizing a 1.5 Nishi magnet and dedicated coil, multiplanar, multiecho imaging of the brain was performed pre and postcontrast administration. IV administration of 12 mL of Gadavist contrast was uneventful. Thin cut coronal T2 imaging was performed according to seizure protocol. FINDINGS: Diffusion-weighted images are normal. No evidence for an acute ischemic insult. Slight increase in signal medial aspect left and to lesser extent right temporal lobe regions. This increased signal is also seen on the T2 images. There is no evidence for postcontrast enhancement. Similar findings in the coronal T2 FLAIR images. Signal characteristics of the cerebellar as well as cerebral hemispheres are otherwise unremarkable. Diagnostic considerations are multiple with with this appearance nonspecific. Potential etiologies include mesial temporal sclerosis, a range of degenerative disorders, with the possibility of glioma toss cerebri and/or certain metabolic disorders diagnostic considerations. Certain. Neoplastic disorders may present in a similar fashion. A nonspecific encephalitis is also a diagnostic consideration. IMPRESSION: 1. Nonspecific increase in signal of the medial left and to lesser extent right temporal lobe regions as described. RF 2. Remainder the brain is otherwise negative for age. 3. Diagnostic considerations include mesial temporal sclerosis, a range of narrow degenerative disorders, as well as the possibility of gliomatosis cerebri and multiple additional less common possibilities. 4. No evidence for mass effect, midline shift, or significant vasogenic edema. The above report was generated using voice recognition software. It may contain grammatical, syntax or spelling errors. Electronically signed by: Kojo Zhu M.D. 04/28/2017 9:22 PM Dictated Date/Time: 04/28/2017 9:08 PM
--- NOTE | 2017-04-28 21:24 | DIAGNOSTIC IMAGING REPORT ---
MRA NECK COMBO HISTORY: Mental status change posse TIA TECHNIQUE: [id number] and gadolinium-enhanced MRA of the neck was performed both before and after the intravenous administration of contrast. All measurements were calculated based on NASCET criteria. COMPARISON STUDY: None. FINDINGS: The aortic arch and proximal great vessels are widely patent. There is no significant stenosis, occlusion, or dissection identified within the bilateral common carotid, internal carotid, or vertebral arteries. IMPRESSION: No significant stenosis, occlusion, or dissection identified within the carotid or vertebral arteries. The above report was generated using voice recognition software. It may contain grammatical, syntax or spelling errors. Electronically signed by: Kojo Zhu M.D. 04/28/2017 9:23 PM Dictated Date/Time: 04/28/2017 9:22 PM
[2017-04-29 00:06] VITALS: BP 123/77; PULSE 66; TEMP 36.8; O2SAT 95
[2017-04-29 05:56] LABS: BASO ABS # 0.06 K/uL (0-0.2); COMPLETE YES; HEMATOCRIT 39.3 % (37-47); IG% 0.5 %; LYMPH % 35.9 %; LYMPH ABS # 2.08 K/uL (1.2-3.4); MEAN CELL VOLUME 87.7 fL (80-100); MEAN CORPUSCULAR HEMOGLOBIN 29.5 pg (25-34); MEAN CORPUSCULAR HGB CONC 33.6 g/dl (32-36); MEAN PLATELET VOLUME 11.2 fL (7.4-10.4); MONO % 11.4 %; NEUT % 50.2 %; PLATELET COUNT 142 K/uL (130-400); RED BLOOD COUNT 4.48 M/uL (4.2-5.4)
[2017-04-29 06:24] LABS: BUN/CREATININE RATIO 24.6 (10-20); CALCIUM 8.5 mg/dl (8.5-10.1); CREATININE 0.54 mg/dl (0.60-1.20); POTASSIUM 3.4 mmol/L (3.5-5.1)
[2017-04-29 06:27] LABS: CHOLESTEROL/HDL RATIO 3.1
[2017-04-29 07:20] VITALS: BP 107/67; PULSE 70; TEMP 37; O2SAT 96
[2017-04-29] MEDS: PANTOprazole SOD 40 MG TAB PO SCH (08:23)
[2017-04-29] MEDS: PAROXETINE 20 MG TAB PO SCH (08:23)
[2017-04-29] MEDS ORDERED: LIDOCAINE HCL 1% 20 ML VIAL ONE (09:42)
[2017-04-29 10:45] VITALS: BP 115/70; PULSE 72; TEMP 37; O2SAT 96
--- NOTE | 2017-04-29 11:49 | OPERATIVE REPORT ---
DATE OF OPERATION: 04/29/2017 DATE: 04/29/2017 LUMBAR PUNCTURE PROCEDURE NOTE After informed consent and in the presence of the patient's son, the patient was prepped and draped in sterile fashion. 1% lidocaine was used at L3-4 and L4-5. Subsequently I was in upright and left lateral decubitus positions, I was unable to cannulate the subarachnoid space. There was minor local bleeding. The patient tolerated the procedure well and will lie flat except for meals and bathroom for approximately 6 hours. I spoke to radiology and she will have a lumbar puncture under fluoroscopic guidance later today. I attest to the content of the Intraoperative Record and any orders documented therein. Any exceptions are noted below. MURIEL
--- NOTE | 2017-04-29 11:49 | PROGRESS NOTE ---
DATE: 04/29/2017 DATE: 04/29/2017 SUBJECTIVE: I am seeing Mrs. Gonzáles in followup of spells of several months' duration, mild headache and some confusion with the question of hallucinations. Her MRI of the brain, which I have reviewed, shows increased FLAIR and T2 signal in the medial temporal lobes bilaterally, left greater than right, which are nonenhancing. MRA of the head and neck were unremarkable. PHYSICAL EXAMINATION: GENERAL: The patient has no complaints, although she did have a typical spell earlier in the day. Awake, alert, normal speech and language. No facial asymmetry. Speech and language are normal. There is symmetric strength, mildly brisk reflexes at the knees. Downgoing toes. 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 The differential includes infectious, inflammatory, paraneoplastic tumor. PLAN: I attempted a lumbar puncture, but was unable to do so, I was unable to successfully perform. LP with be performed under flouro today. will be performed including cell count, protein, glucose, oligoclonal bands, viral titers, HSV which would be the most common viral encephalitis to cause a picture of this sort. However, the patient does not appear typically ill enough. Nonviral etiologies of limbic encephalitis include NMDA related limbic encephalitis. CSF panel for paraneoplastic etiologies will be ordered and will include the NMDA receptor, Anti-Hu CVT amphiphysin voltage gated potassium channel. If paraneoplastic etiologies include ovarian mediastinal teratoma. I would recommend that the patient have a CT of his chest. I did not order it as I do not know if she needs intravenous contrast and defer that to primary care. She should also have mammography. The EEG will be performed today. I am highly suspicious that these spells are either simple partial or partial complex. I did not witness her to have 1 and she was awake and alert, so I am most suspicious that these are simple partial seizures. Will follow with you. Addend 731 PM, CSF prelim looks relatively benign. EEG is suggestive of potential seizure. Clinically I feel strongly that the episodes are simple partial sz and will start Keppra. MD Murray [facility] HOSPITALDottie
[2017-04-29] MEDS: NSS + 20MEQ KCL 1000ML 1,000 ML IV SCH (12:23)
--- NOTE | 2017-04-29 13:52 | EEG Procedure Note ---
EEG Procedure Note Date of Service Apr 29, 2017. Start / End Times Start Time: 12:54 P End Time: 1:[address] Longo History episodic warmth and confusion, possible partial complex seizures Home Medication List Scheduled Acetaminophen (Tylenol), 1,000 MG PO HS Hydrochlorothiazide (Hctz), 25 MG PO DAILY Paroxetine HCl (Paroxetine), 20 MG PO DAILY Inpatient Medication List Current Inpatient Medications Medications (Trade) Dose Ordered Sig/Nasrin Route Start Time Stop Time Status Last Admin Dose Admin Ioversol (Optiray 320) 100 ml UD PRN IV 04/27/17 19:15 05/01/17 19:14 Acetaminophen (Tylenol Tab) 650 mg Q4H PRN PO 04/27/17 23:00 05/27/17 22:59 04/27/17 23:58 650 MG Ondansetron HCl (Zofran Inj) 4 mg Q6H PRN IV 04/27/17 23:00 05/27/17 22:59 Potassium Chloride/Sodium Chloride 1,000 ml @ 80 mls/hr [id number] IV 04/27/17 23:00 05/27/17 22:59 04/29/17 12:23 80 MLS/HR Miscellaneous (Iv Fluids Completed) 1 ea PRN PRN N/A 04/27/17 23:45 04/27/18 23:44 Lorazepam (Ativan Tab) 0.5 mg Q4H PRN PO 04/28/17 12:15 05/28/17 12:14 04/28/17 12:19 0.5 MG Paroxetine HCl (pAXil TAB) 40 mg QAM PO 04/29/17 08:00 05/29/17 07:59 04/29/17 08:23 40 MG Pantoprazole Sodium (Protonix Tab) 40 mg QAM PO 04/29/17 08:00 05/29/17 07:59 04/29/17 08:23 40 MG Description This is a 21 electrode EEG with a single channel dedicated to limited EKG. The electrodes were placed in accordance with the International 10-20 system. This is a portable bedside video/EEG, completed on the general medical floor. There is a normal appearing background rhythm of about 10 Hz of maximal amplitude posteriorly and symmetrical distribution. There is prominent beta activity observed in the frontal regions. Fairly continuous right frontal delta slowing is observed. Intermittent right frontal sharps are also appreciated. Photic stimulation is unremarkable. Interpretation This EEG reveals right frontal slowing and sharps potentially consistent with focal cerebral dysfunction and a lower seizure threshold. The prominent beta rhythm could be consistent with a benzodiazepine effect. Clinical Correlation This is an abnormal EEG potentially suggesting focal cerebral dysfunction and a lower seizure threshold. Correlation with neuroimaging is recommended.
[2017-04-29] MEDS ORDERED: POTASSIUM CHLORIDE 10 MEQ TABCR PO ONE (14:00)
[2017-04-29] MEDS ORDERED: OPTIRAY 320 IV PRN (14:15)
--- NOTE | 2017-04-29 14:48 | DIAGNOSTIC IMAGING REPORT ---
(CHEST) THORAX WITH CT DOSE: 768.11 mGy.cm HISTORY: Neoplasm limbic encephalitis. Paraneoplastic etiology? TECHNIQUE: Multiaxial CT images of the chest were performed following the intravenous administration of contrast. A dose lowering technique was utilized adhering to the principles of ALARA. COMPARISON: None. FINDINGS: The lungs are clear. The mediastinal vascular structures are within normal limits. No mediastinal or hilar lymphadenopathy. No pleural effusion or pneumothorax. Limited views of the upper abdomen demonstrate a normal liver and spleen. IMPRESSION: No significant abnormality identified within the chest. The above report was generated using voice recognition software. It may contain grammatical, syntax or spelling errors. Electronically signed by: Kojo Zhu M.D. 04/29/2017 2:47 PM Dictated Date/Time: 04/29/2017 2:45 PM
--- NOTE | 2017-04-29 14:50 | DIAGNOSTIC IMAGING REPORT ---
LUMBAR PUNCTURE DIAGNOSTIC CLINICAL HISTORY: limbic encephalitis mental status change FLUOROSCOPY TIME: 20 seconds PROCEDURE: The procedure, risks and benefits were discussed with the patient including the risk of spinal headache, bleeding and infection. The patient agreed to the procedure and informed written consent was obtained. The procedure was performed by Dr. Zhu following a timeout. The left L3-L4 interlaminar space was targeted. Skin overlying the space was prepped and draped in the usual sterile fashion and local anesthesia was achieved with 1% lidocaine. Under intermittent fluoroscopic guidance, a 20-gauge x 3 1/2 in. Sprotte needle was inserted into the thecal sac. Opening pressure was 10 mmHg. A total of 9cc of clear, colorless cerebral spinal fluid was obtained and spread amongst 4 vials. The patient tolerated the procedure well. There were no immediate complications. The specimens were sent to the laboratory at the request of the referring physician. Additional fluid could not be obtained. IMPRESSION: Successful fluoroscopic guided lumbar puncture with removal of 9 cc of clear, colorless cerebral spinal fluid. No immediate complications. Opening pressure 10 mmHg. The above report was generated using voice recognition software. It may contain grammatical, syntax or spelling errors. Electronically signed by: Kojo Zhu M.D. 04/29/2017 2:49 PM Dictated Date/Time: 04/29/2017 2:47 PM
[2017-04-29 15:09] LABS: CSF TOTAL PROTEIN 41.7 mg/dl (15.0-45.0)
[2017-04-29 15:36] VITALS: BP 100/59; PULSE 63; TEMP 37.3; O2SAT 97
[2017-04-29 15:41] LABS: CSF APPEARANCE CLEAR; CSF COLOR COLORLESS; CSF XANTHOCHROMIC NO XANTHOCHROMIA
--- NOTE | 2017-04-29 18:28 | Progress Note ---
Internal Med Progress Note Date of Service: Apr 29, 2017. Provider Documentation: SUBJECTIVE: doing ok now no headache or blurred vision no sob or chest pain afebrile but once in a while weird feeling runs through her body OBJECTIVE: Vital Signs-as noted below Exam: General-alert and oriented. Not in distress ENT-normal hearing Neck-no neck masses Lungs-cta b/l no wheezing no crackles Heart-s1 and s2 heard regular rhythm, no murmurs Abdomen-soft bowel sounds present non tender no distension Extremities no edema present no erythema Neuro-alert and oriented moves extremities Lab data as noted below. ASSESSMENT & PLAN: 66 year old female with history of hypertension and anxiety presenting with headaches, generalized weakness and abdominal pain. HEADACHES, WEAKNESS associated with hallucinations CT head negative MRI- limbic encephalitis? s/p LP and await studies f/u ct chest fpor any paraneoplastic findings appreciate neurology inputs EPIGASTRIC PAIN CT abdomen unrevealing on Protonix HTN on HCTZ- on hold will monitor PULMONARY NODULE to be monitored as outpatient SCDs for DVT prophylaxis FULL CODE per patient DISPOSITION lives with daughter at home PT/OT evals to be determined Vital Signs: Date Time Temp Pulse Resp B/P (MAP) Pulse Ox O2 Delivery O2 Flow Rate FiO2 04/29/17 16:00 Room Air 04/29/17 15:36 37.3 63 20 100/59 (73) 97 Room Air 04/29/17 11:00 Room Air 04/29/17 10:45 37.0 72 20 115/70 (85) 96 Room Air 04/29/17 07:20 37.0 70 20 107/67 (80) 96 Room Air 04/29/17 00:06 36.8 66 16 123/77 (92) 95 Room Air 04/29/17 00:00 Room Air 04/28/17 20:00 Room Air Lab Results: Results Past 24 Hours Test 04/29/17 05:21 04/29/17 14:25 04/29/17 15:44 Range/Units White Blood Count 5.80 4.8-10.8 K/uL Red Blood Count 4.48 4.2-5.4 M/uL Hemoglobin 13.2 12.0-16.0 g/dL Hematocrit 39.3 37-47 % Mean Corpuscular Volume 87.7 80-100 fL Mean Corpuscular Hemoglobin 29.5 25-34 pg Mean Corpuscular Hemoglobin Concent 33.6 32-36 g/dl Platelet Count 142 130-400 K/uL Mean Platelet Volume 11.2 7.4-10.4 fL Neutrophils (%) (Auto) 50.2 % Lymphocytes (%) (Auto) 35.9 % Monocytes (%) (Auto) 11.4 % Eosinophils (%) (Auto) 1.0 % Basophils (%) (Auto) 1.0 % Neutrophils # (Auto) 2.91 1.4-6.5 K/uL Lymphocytes # (Auto) 2.08 1.2-3.4 K/uL Monocytes # (Auto) 0.66 0.11-0.59 K/uL Eosinophils # (Auto) 0.06 0-0.5 K/uL Basophils # (Auto) 0.06 0-0.2 K/uL RDW Standard Deviation 41.1 36.4-46.3 fL RDW Coefficient of Variation 12.8 11.5-14.5 % Immature Granulocyte % (Auto) 0.5 % Immature Granulocyte # (Auto) 0.03 0.00-0.02 K/uL Sodium Level 142 136-145 mmol/L Potassium Level 3.4 3.5-5.1 mmol/L Chloride Level 108 98-107 mmol/L Carbon Dioxide Level 28 21-32 mmol/L Anion Gap 6.0 3-11 mmol/L Blood Urea Nitrogen 13 7-18 mg/dl Creatinine 0.54 0.60-1.20 mg/dl Est Creatinine Clear Calc Drug Dose 137.3 ml/min Estimated GFR () 114.0 Estimated GFR (Non- 98.3 BUN/Creatinine Ratio 24.6 10-20 Random Glucose 89 88 70-99 mg/dl Calcium Level 8.5 8.5-10.1 mg/dl Triglycerides Level 125 0-150 mg/dl Cholesterol Level 161 0-200 mg/dl HDL Cholesterol 52 mg/dl LDL Cholesterol, Calculated 84 mg/dl VLDL Cholesterol, Calculated 25 mg/dl Cholesterol/HDL Ratio 3.1 Vitamin B12 Level 241 211-911 pg/mL Folate 9.97 >5.38 ng/mL CSF Color COLORLESS CSF Appearance CLEAR CSF WBC 0 0-5 /uL CSF RBC 62 0 /uL CSF Xanthrochromic NO XANTHOCHROMIA CSF Cell Count Tube # 3 CSF Chemistry Tube # 3 CSF Glucose 58 40-70 mg/dl CSF Total Protein 41.7 15.0-45.0 mg/dl Erythrocyte Sedimentation Rate 2 0-21 mm/hr Microbiology Results 04/29/17 Acid Fast Stain, Received Pending 04/29/17 Mycobacterial Culture, Received Pending 04/29/17 Fungal Culture, Received Pending 04/29/17 Gram Stain - Final, Resulted 04/29/17 CSF Culture, Resulted Pending
[2017-04-29] MEDS: LEVETIRACETAM 500 MG TAB PO SCH (20:50)
[2017-04-29 22:57] VITALS: BP 102/63; PULSE 68; TEMP 37; O2SAT 96
[2017-04-30] MEDS: NSS + 20MEQ KCL 1000ML 1,000 ML IV SCH (00:30)
[2017-04-30 06:11] LABS: BASO % 0.9 %; BASO ABS # 0.05 K/uL (0-0.2); COMPLETE YES; EOS % 1.5 %; HEMATOCRIT 37.2 % (37-47); IG% 0.5 %; LYMPH % 33.5 %; LYMPH ABS # 1.96 K/uL (1.2-3.4); MEAN CELL VOLUME 86.7 fL (80-100); MEAN CORPUSCULAR HEMOGLOBIN 29.1 pg (25-34); MEAN CORPUSCULAR HGB CONC 33.6 g/dl (32-36); MEAN PLATELET VOLUME 11.3 fL (7.4-10.4); MONO % 9.1 %; NEUT % 54.5 %; PLATELET COUNT 150 K/uL (130-400); RED BLOOD COUNT 4.29 M/uL (4.2-5.4); WHITE BLOOD COUNT 5.85 K/uL (4.8-10.8)
[2017-04-30 06:51] LABS: BUN/CREATININE RATIO 22.1 (10-20); CREATININE 0.47 mg/dl (0.60-1.20); POTASSIUM 3.9 mmol/L (3.5-5.1)
[2017-04-30 07:15] VITALS: BP 110/66; PULSE 73; TEMP 36.7; O2SAT 97
[2017-04-30] MEDS: LEVETIRACETAM 500 MG TAB PO SCH ×2 (08:13→20:12)
[2017-04-30] MEDS: PANTOprazole SOD 40 MG TAB PO SCH (08:13)
[2017-04-30] MEDS: PAROXETINE 20 MG TAB PO SCH (08:13)
[2017-04-30] MEDS: ACETAMINOPHEN 325 MG TAB PO PRN (08:14)
--- NOTE | 2017-04-30 11:43 | PROGRESS NOTE ---
DATE: 04/30/2017 SUBJECTIVE: I am seeing Ms. Gonzáles in followup of an admission for some confusion, possible hallucinations and what may have been simple partial seizures. MRI of the brain shows T2 and FLAIR abnormalities in the left greater than right medial temporal lobe, which were nonenhancing, suggestive of a limbic encephalitis/encephalopathy. CT of the chest on as part of malignancy workup showed no significant abnormality. Lumbar puncture performed under fluoroscopic guidance showed normal opening pressure. There were no white cells, 62 red clear and colorless, glucose 58, and total protein 42. Cultures negative today. Her EEG showed evidence of a normal background with prominent beta activity in the frontal region, possibly related to benzodiazepine use and fairly continuous right frontal delta slowing with intermittent right frontal sharps. The EEG was read as being abnormal, potentially suggesting focal cerebral dysfunction or lower seizure threshold. The patient is doing well. She has not had any headaches and has no further neurologic deficits. She has not been confused and has not had any hallucinations. She had 1 minor spell of warmth without confusion. It was more minor than the prior episode. OBJECTIVE: VITAL SIGNS: Temperature 36.7, pulse 73, respiratory rate 18, blood pressure 110/66, and oxygen saturation 97%. GENERAL: The patient is awake, alert, and oriented x3. There is an area of ecchymosis in the region of lumbar puncture. It is nontender. NEUROLOGIC: There is normal extraocular motility and facial symmetry. Speech and language are normal. Motor 5/5. No drift. Normal rapid alternating movements. Symmetric reflexes. Downgoing toes. Lexjvt-fo-sgiq and bdyc-pv-zdgc are normal. Her gait is normal. IMPRESSION: Limbic encephalopathy/encephalitis. No evidence on lumbar puncture that this is infectious. PLAN: Await the results of the perineoplastic profile in the CSF including anti-NMDA. I would recommend that she see gynecology, have a Pap smear and a pelvic exam and the patient have a breast exam as well as a mammography. The patient is fairly asymptomatic at present. Her son indicates that the only unusual confusion that occurred was on the day of admission. One could hypothesizes that it was related to a simple partial seizure. We will need to observe in that regard. There are treatment options including steroids and plasma exchange. I think we need to have an etiology as well as treat the patient rather than treat the radiographic findings. Ultimately, she may need to make an appointment at a tertiary care center if the etiology is unclear. I would recommend having her see me in the next week to 10 days in the office and not driving in the interim. I would like her to be observed another day and discharged tomorrow if there are no other concerns. MURIEL
[2017-04-30 14:36] VITALS: BP 107/64; PULSE 68; TEMP 37; O2SAT 96
--- NOTE | 2017-04-30 15:46 | Progress Note ---
Internal Med Progress Note Date of Service: Apr 30, 2017. Provider Documentation: SUBJECTIVE: resting comfortably family in room no headaches or blurry vision no sob or chest pain no nausea ambulating fine no weakness OBJECTIVE: Vital Signs-as noted below Exam: General-alert and oriented. Not in distress ENT-normal hearing Neck-no neck masses Lungs-cta b/l no wheezing no crackles Heart-s1 and s2 heard regular rhythm, no murmurs Abdomen-soft bowel sounds present non tender no distension Extremities no edema present no erythema Neuro-alert and oriented moves extremities Lab data as noted below. ASSESSMENT & PLAN: 66 year old female with history of hypertension and anxiety presenting with headaches, generalized weakness and abdominal pain. HEADACHES, WEAKNESS associated with hallucinations CT head negative MRI- limbic encephalitis? s/p LP and await studies f/u ct chest por any paraneoplastic findings-unremarkable findings appreciate neurology inputs plan to followup as out patient and discharge tomorrow if stable EPIGASTRIC PAIN CT abdomen unrevealing on Protonix HTN on HCTZ- on hold will monitor PULMONARY NODULE to be monitored as outpatient SCDs for DVT prophylaxis FULL CODE per patient DISPOSITION lives with daughter at home PT/OT evals possible d/c in am Vital Signs: Date Time Temp Pulse Resp B/P (MAP) Pulse Ox O2 Delivery O2 Flow Rate FiO2 04/30/17 15:24 Room Air 04/30/17 14:36 37.0 68 18 107/64 (78) 96 Room Air 04/30/17 08:00 Room Air 04/30/17 07:15 36.7 73 18 110/66 (81) 97 Room Air 04/30/17 00:00 Room Air 04/29/17 22:57 37.0 68 16 102/63 (76) 96 Room Air 04/29/17 20:00 Room Air 04/29/17 16:00 Room Air Lab Results: Results Past 24 Hours Test 04/30/17 05:39 Range/Units White Blood Count 5.85 4.8-10.8 K/uL Red Blood Count 4.29 4.2-5.4 M/uL Hemoglobin 12.5 12.0-16.0 g/dL Hematocrit 37.2 37-47 % Mean Corpuscular Volume 86.7 80-100 fL Mean Corpuscular Hemoglobin 29.1 25-34 pg Mean Corpuscular Hemoglobin Concent 33.6 32-36 g/dl Platelet Count 150 130-400 K/uL Mean Platelet Volume 11.3 7.4-10.4 fL Neutrophils (%) (Auto) 54.5 % Lymphocytes (%) (Auto) 33.5 % Monocytes (%) (Auto) 9.1 % Eosinophils (%) (Auto) 1.5 % Basophils (%) (Auto) 0.9 % Neutrophils # (Auto) 3.19 1.4-6.5 K/uL Lymphocytes # (Auto) 1.96 1.2-3.4 K/uL Monocytes # (Auto) 0.53 0.11-0.59 K/uL Eosinophils # (Auto) 0.09 0-0.5 K/uL Basophils # (Auto) 0.05 0-0.2 K/uL RDW Standard Deviation 41.0 36.4-46.3 fL RDW Coefficient of Variation 12.8 11.5-14.5 % Immature Granulocyte % (Auto) 0.5 % Immature Granulocyte # (Auto) 0.03 0.00-0.02 K/uL Sodium Level 144 136-145 mmol/L Potassium Level 3.9 3.5-5.1 mmol/L Chloride Level 113 98-107 mmol/L Carbon Dioxide Level 27 21-32 mmol/L Anion Gap 4.0 3-11 mmol/L Blood Urea Nitrogen 10 7-18 mg/dl Creatinine 0.47 0.60-1.20 mg/dl Est Creatinine Clear Calc Drug Dose 157.8 ml/min Estimated GFR () 119.3 Estimated GFR (Non- 102.9 BUN/Creatinine Ratio 22.1 10-20 Random Glucose 92 70-99 mg/dl Calcium Level 8.0 8.5-10.1 mg/dl
[2017-04-30 22:49] VITALS: BP 125/69; PULSE 62; TEMP 37; O2SAT 96
[2017-05-01 05:39] LABS: BASO % 0.8 %; BASO ABS # 0.05 K/uL (0-0.2); COMPLETE YES; EOS % 2.5 %; HEMATOCRIT 38.7 % (37-47); IG% 0.2 %; LYMPH % 30.6 %; LYMPH ABS # 1.96 K/uL (1.2-3.4); MEAN CELL VOLUME 88.4 fL (80-100); MEAN CORPUSCULAR HEMOGLOBIN 29.9 pg (25-34); MEAN CORPUSCULAR HGB CONC 33.9 g/dl (32-36); MEAN PLATELET VOLUME 10.9 fL (7.4-10.4); NEUT % 56.9 %; PLATELET COUNT 156 K/uL (130-400); RED BLOOD COUNT 4.38 M/uL (4.2-5.4); WHITE BLOOD COUNT 6.41 K/uL (4.8-10.8)
[2017-05-01 06:05] LABS: BUN/CREATININE RATIO 28.5 (10-20); CALCIUM 8.3 mg/dl (8.5-10.1); CREATININE 0.56 mg/dl (0.60-1.20); POTASSIUM 3.9 mmol/L (3.5-5.1)
[2017-05-01 07:09] VITALS: BP 126/72; PULSE 72; TEMP 37; O2SAT 96
[2017-05-01] MEDS: ACETAMINOPHEN 325 MG TAB PO PRN (07:55)
[2017-05-01] MEDS: PAROXETINE 20 MG TAB PO SCH (07:55)
[2017-05-01] MEDS: LEVETIRACETAM 500 MG TAB PO SCH (07:55)
[2017-05-01] MEDS: PANTOprazole SOD 40 MG TAB PO SCH (07:55)
[2017-05-01] MEDS ORDERED: PARO40TA3 PO (14:26)
[2017-05-01] MEDS ORDERED: LEVE500T13 PO (14:26)
--- NOTE | 2017-05-01 14:35 | Discharge Instructions ---
Discharge Instructions Date of Service May 01, 2017. Admission Reason for Admission: Generalized Weakness Discharge Discharge Diagnosis / Problem: genralized weakness, partial seizures? Discharge Goals Goal(s): Decrease discomfort, Improve function Activity Recommendations Activity Limitations: resume your previous activity . Instructions / Follow-Up Instructions / Follow-Up FOLLOWUP WITH FAMILY DOCTOR ON Apr AT 11:15AM FOLLOWUP WITH NEUROLOGY DR.Kathleen Meme Longo IN 1-2 WEEKS. FOLLOWUP WITH FAMILY DOCTOR OR OB- [employer] FOR PELVIC EXAM, BREAST EXAM, PAP SMEAR AND MAMMOGRAM. NO DRIVING UNTIL SEEN BY NEUROLOGY. NEW MEDICATION: KEPPRA 500MG TWICE DAILY( FOR SEIZURES PAXIL DOSE INCREASED TO 40MG DAILY( FOR DEPRESSION/ANXIETY). Current Hospital Diet Patient's current hospital diet: AHA Diet (Heart Healthy) Discharge Diet Recommended Diet: AHA Diet (Heart Healthy) Pending Studies Studies pending at discharge: yes List of pending studies: LP STUDIES Laboratory Results Lipid Panel Test 04/29/17 05:21 Range/Units Triglycerides Level 125 0-150 mg/dl Cholesterol Level 161 0-200 mg/dl HDL Cholesterol 52 mg/dl Cholesterol/HDL Ratio 3.1 LDL Cholesterol, Calculated 84 mg/dl Medical Emergencies . Who to Call and When: Medical Emergencies: If at any time you feel your situation is an emergency, please call 911 immediately. . Non-Emergent Contact Non-Emergency issues call your: Primary Care Provider . . "Provider Documentation" section prepared by Harrison Ho. . VTE Core Measure Inpt VTE Proph given/why not?: SCD's
[2017-05-01 14:37] VITALS: BP 126/72; PULSE 72; TEMP 37; O2SAT 96
--- NOTE | 2017-05-01 18:54 | Progress Note ---
Internal Med Progress Note Date of Service: May 01, 2017. Provider Documentation: SUBJECTIVE: resting comfortably ambulating ok no sob eating fine want to go home OBJECTIVE: Vital Signs-as noted below Exam: General-alert and oriented. Not in distress ENT-normal hearing Neck-no neck masses Lungs-cta b/l no wheezing no crackles Heart-s1 and s2 heard regular rhythm, no murmurs Abdomen-soft bowel sounds present non tender no distension Extremities no edema present no erythema Neuro-alert and oriented moves extremities Lab data as noted below. ASSESSMENT & PLAN: 66 year old female with history of hypertension and anxiety presenting with headaches, generalized weakness and abdominal pain. HEADACHES, WEAKNESS associated with hallucinations CT head negative MRI- limbic encephalitis? s/p LP and await studies f/u ct chest por any paraneoplastic findings-unremarkable findings appreciate neurology inputs started on Keppra for possible partial seizures plan to followup as out patient and discharge tomorrow if stable EPIGASTRIC PAIN CT abdomen unrevealing on Protonix HTN on HCTZ- on hold will monitor PULMONARY NODULE to be monitored as outpatient f/u with pcp discharged home Vital Signs: Date Time Temp Pulse Resp B/P (MAP) Pulse Ox O2 Delivery O2 Flow Rate FiO2 05/01/17 14:37 37.0 72 20 96 Room Air 05/01/17 08:15 Room Air 05/01/17 07:09 37.0 72 20 126/72 (90) 96 Room Air 05/01/17 00:00 Room Air 04/30/17 22:49 37.0 62 18 125/69 (87) 96 Room Air 04/30/17 20:00 Room Air Lab Results: Results Past 24 Hours Test 05/01/17 05:25 Range/Units White Blood Count 6.41 4.8-10.8 K/uL Red Blood Count 4.38 4.2-5.4 M/uL Hemoglobin 13.1 12.0-16.0 g/dL Hematocrit 38.7 37-47 % Mean Corpuscular Volume 88.4 80-100 fL Mean Corpuscular Hemoglobin 29.9 25-34 pg Mean Corpuscular Hemoglobin Concent 33.9 32-36 g/dl Platelet Count 156 130-400 K/uL Mean Platelet Volume 10.9 7.4-10.4 fL Neutrophils (%) (Auto) 56.9 % Lymphocytes (%) (Auto) 30.6 % Monocytes (%) (Auto) 9.0 % Eosinophils (%) (Auto) 2.5 % Basophils (%) (Auto) 0.8 % Neutrophils # (Auto) 3.65 1.4-6.5 K/uL Lymphocytes # (Auto) 1.96 1.2-3.4 K/uL Monocytes # (Auto) 0.58 0.11-0.59 K/uL Eosinophils # (Auto) 0.16 0-0.5 K/uL Basophils # (Auto) 0.05 0-0.2 K/uL RDW Standard Deviation 41.3 36.4-46.3 fL RDW Coefficient of Variation 12.8 11.5-14.5 % Immature Granulocyte % (Auto) 0.2 % Immature Granulocyte # (Auto) 0.01 0.00-0.02 K/uL Sodium Level 143 136-145 mmol/L Potassium Level 3.9 3.5-5.1 mmol/L Chloride Level 111 98-107 mmol/L Carbon Dioxide Level 31 21-32 mmol/L Anion Gap 1.0 3-11 mmol/L Blood Urea Nitrogen 16 7-18 mg/dl Creatinine 0.56 0.60-1.20 mg/dl Est Creatinine Clear Calc Drug Dose 132.4 ml/min Estimated GFR () 112.6 Estimated GFR (Non- 97.2 BUN/Creatinine Ratio 28.5 10-20 Random Glucose 97 70-99 mg/dl Calcium Level 8.3 8.5-10.1 mg/dl
--- NOTE | 2017-05-01 19:09 | Discharge Summary ---
Discharge Summary Date of Service May 01, 2017. Discharge Summary Admission Date: Apr 27, 2017 at 21:26 Discharge Date: May 01, 2017 Discharge Disposition: Home Principal Diagnosis: PARTIAL SEIZURES? Secondary Diagnoses/Problems: hypertension and anxiety Procedures: HEAD CT ABDOMINAL/PELVIS CT HEAD MRI AND MRA NECK MRA CT CHEST EEG: This EEG reveals right frontal slowing and sharps potentially consistent with focal cerebral dysfunction and a lower seizure threshold. The prominent beta rhythm could be consistent with a benzodiazepine effect. S/P LP Consultations: NEUROLOGY PSYCHIATRY Medication Reconciliation New Medications: Paroxetine Hcl (Paxil) 40 Mg Tab 1 TAB PO DAILY for 30 Days, #30 TAB 2 Refills Levetiracetam (Keppra) 500 Mg Tab 500 MG PO BID, #60 TAB 1 Refill Continued Medications: Acetaminophen (Tylenol) 500 Mg Tab 1000 MG PO HS, TAB Hydrochlorothiazide (Hctz) 25 Mg Tab 25 MG PO DAILY, TAB Discontinued Medications: Paroxetine HCl (Paroxetine) 20 Mg Tab 20 MG PO DAILY Admission Information HPI (per Admitting provider): 66 year old female with history of hypertension and anxiety presenting with headaches, generalized weakness and abdominal pain. Patient was apparently at her baseline state of health until a few days ago. She reports intermittent abdominal pain, vague discomfort, not related to food intake. Denies nausea, changes with BM/melena/hematochezia. Patient also reports daily headaches for the past few days, frontal, throbbing associated with feeling of "strange sensation" all over her body, followed by generalized weakness. Denies photophobia, visual changes, focal neuro deficits. Per ER notes, patient's daughter reports that she has been having episodes of hallucinations as well (please refer to ER notes). Denies fever/chills, chest pain, dyspnea. No other symptoms. CT head negative no leukocytosis flu, lyme screen negative Physical Exam (per Admitting): General Appearance: WD/WN, no apparent distress Head: normocephalic, atraumatic Eyes: normal inspection, EOMI, sclerae normal ENT: normal ENT inspection, hearing grossly normal, pharynx normal Neck: supple, no adenopathy, thyroid normal, no JVD, trachea midline Respiratory/Chest: chest non-tender, lungs clear, normal breath sounds, no respiratory distress, no accessory muscle use Cardiovascular: regular rate, rhythm, no edema, no JVD, no murmur Abdomen/GI: normal bowel sounds, non tender, soft, no organomegaly Back: normal inspection, no CVA tenderness Extremities/Musculoskelatal: normal inspection, no calf tenderness, no pedal edema, non-tender Neurologic/Psych: shirt hemmer II-XII nml as tested, no motor/sensory deficits, alert , normal mood/affect, oriented x 3 Skin: normal color, warm/dry, no rash Lymphatic: no adenopathy Hospital Course 66 year old female with history of hypertension and anxiety presenting with headaches, generalized weakness and abdominal pain. HEADACHES, WEAKNESS associated with hallucinations CT head negative MRI- limbic encephalitis? s/p LP and await studies f/u ct chest por any paraneoplastic findings-unremarkable findings CT ABD/PELVIS UNREMARKABLE NEUROLOGY RECOMMENDS BREAST EXAM, PELVIC EXAM, MAMMOGRAM AND PAP SMEAR- TO BE DONE OUT PATIENT appreciate neurology inputs started on Keppra for possible partial seizures plan to followup as out patient and discharge tomorrow if stable EPIGASTRIC PAIN CT abdomen unrevealing on Protonix HTN on HCTZ- on hold will monitor PULMONARY NODULE to be monitored as outpatient f/u with pcp discharged home Total time spent on discharge = 35MINUTES This includes examination of the patient, discharge planning, medication reconciliation, and communication with other providers. Discharge Instructions Discharge Instructions Date of Service May 01, 2017. Admission Reason for Admission: Generalized Weakness Discharge Discharge Diagnosis / Problem: genralized weakness, partial seizures? Discharge Goals Goal(s): Decrease discomfort, Improve function Activity Recommendations Activity Limitations: resume your previous activity . Instructions / Follow-Up Instructions / Follow-Up FOLLOWUP WITH FAMILY DOCTOR ON Apr AT 11:15AM FOLLOWUP WITH NEUROLOGY DR.Kathleen Meme Longo IN 1-2 WEEKS. FOLLOWUP WITH FAMILY DOCTOR OR OB- [employer] FOR PELVIC EXAM, BREAST EXAM, PAP SMEAR AND MAMMOGRAM. NO DRIVING UNTIL SEEN BY NEUROLOGY. NEW MEDICATION: KEPPRA 500MG TWICE DAILY( FOR SEIZURES PAXIL DOSE INCREASED TO 40MG DAILY( FOR DEPRESSION/ANXIETY). Current Hospital Diet Patient's current hospital diet: AHA Diet (Heart Healthy) Discharge Diet Recommended Diet: AHA Diet (Heart Healthy) Pending Studies Studies pending at discharge: yes List of pending studies: LP STUDIES Laboratory Results Lipid Panel Test 04/29/17 05:21 Range/Units Triglycerides Level 125 0-150 mg/dl Cholesterol Level 161 0-200 mg/dl HDL Cholesterol 52 mg/dl Cholesterol/HDL Ratio 3.1 LDL Cholesterol, Calculated 84 mg/dl Medical Emergencies . Who to Call and When: Medical Emergencies: If at any time you feel your situation is an emergency, please call 911 immediately. . Non-Emergent Contact Non-Emergency issues call your: Primary Care Provider . . "Provider Documentation" section prepared by Harrison Ho. . VTE Core Measure Inpt VTE Proph given/why not?: SCD's
[2017-05-04 02:30] LABS: HSV TYPE 1 DNA Not Detected (Not Detected); HSV TYPE 1&2 DNA SOURCE CSF; HSV TYPE 2 DNA Not Detected (Not Detected); LYME DNA PCR CSF OR SYNOVIAL Not detected (Not Detected); LYME DNA SOURCE CSF; VARICELLA ZOSTER DNA PCR QUAL Not Detected (Not Detected); VZ DNA SOURCE CSF
--- NOTE | 2017-05-17 10:41 | CODING QUERY MEDICAL NECESSITY ---
CQSUPPORTING DIAGNOSIS NEEDED A supporting diagnosis is required for the test/procedure performed on this patient in order for us to be reimbursed by the patient's insurance. Please provide a supporting diagnosis for the following test/procedure listed below next to the test name along with your signature. *If there is no additional diagnosis for this patient that would support the following test/procedure please document that below next to the test/procedure. Test(s)/Procedure(s) that require a supporting diagnosis: DOS 04/28/17 MRA HEAD AND NECK VITAMIN B12 TEST SCREENIG SEXUALLY TRANSMITTED DISEASE Provider Signature: Date: Thank you Anuradha Ortiz Health Information Management Once completed, please kindly fax back to [phone] For questions please call [phone]
== END 2017-05-01 15:28 | disposition home or self-care (01) ==
LOC: C.EDB 17:13 → C.4E 21:26 → ENRESERV 21:31
PROVIDERS: ADMIT Internal Medicine; ATTEND Internal Medicine
DX: R53.1 Weakness (principal); G93.40 Encephalopathy, unspecified; R44.3 Hallucinations, unspecified; R10.84 Generalized abdominal pain; R51 Headache; M79.1 Myalgia; R31.9 Hematuria, unspecified; I10 Essential (primary) hypertension; F41.9 Anxiety disorder, unspecified; R10.13 Epigastric pain; R91.1 Solitary pulmonary nodule; F32.9 Major depressive disorder, single episode, unspecified; E87.6 Hypokalemia; R41.0 Disorientation, unspecified